=== PATIENT | female | born 1960 | race Caucasian/White ===

== ENCOUNTER 2022-07-01 10:27 | Inpatient (IN) | payer OTHER ==
[2022-07-01] MEDS ORDERED: SODIUM CHLORIDE 1,000 ML IV STA (10:53)
[2022-07-01 11:25] VITALS: BMI 22.3
[2022-07-01 11:58] LABS: HEMATOCRIT 31.9 % (32.4-45.2); HEMOGLOBIN 10.4 GM/dL (10.7-15.3); MCHC 32.6 g/dl (32.0-36.0); MEAN CELL VOLUME 91.9 fl (80-96); MEAN PLT VOLUME 9.7 fl (7.5-11.1); PLATELET COUNT 375 10^3/uL (134-434); RBC 3.47 M/mm3 (3.60-5.2); RDW 16.1 % (11.6-15.6); WHITE BLOOD COUNT 20.3 K/mm3 (4.0-10.0)
[2022-07-01 12:02] LABS: VENOUS BASE EXCESS 8.7 mmol/L (-2-2); VENOUS O2 SATURATION 49.1 % (70-80); VENOUS PCO2 66.9 mmHg (38-52); VENOUS PH 7.352 (7.310-7.410)
[2022-07-01 12:06] LABS: INR 1.1 (0.83-1.09); PROTHROMBIN TIME (PATIENT) 12.8 SEC (9.7-13.0)
[2022-07-01 12:09] LABS: ACTIVATED PTT 34.4 SECONDS (25.2-36.5)
[2022-07-01 12:19] LABS: ALBUMIN 2.1 g/dl (3.4-5.0); BLOOD UREA NITROGEN 34.3 mg/dL (7-18); CALCIUM 10.1 mg/dL (8.5-10.1)
[2022-07-01] MEDS ORDERED: VANCOMYCIN 1 GM in D5W (PRE-DOCKED) 1,000 MG/250 ML IVPB ONE (12:19)
[2022-07-01] MEDS ORDERED: PIPERACILLIN/TAZOB 3.375 GM 3.375 GM in DEXTROSE 5%-WATER - 50 ML IVPB ONE ×2 (12:19→20:54)
[2022-07-01 12:22] LABS: CREATININE 0.6 mg/dL (0.55-1.3)
[2022-07-01 12:24] LABS: BILIRUBIN,TOTAL 0.3 mg/dL (0.2-1); TOT PROT 6.7 g/dl (6.4-8.2)
[2022-07-01 12:29] LABS: LACTIC ACID 2.2 mmol/L (0.4-2.0)
[2022-07-01] MEDS ORDERED: CEFEPIME HCL/D5W 1 GM/50 ML BAG IVPB ONE (12:30)
[2022-07-01] MEDS ORDERED: CEFEPIME 1 GM/100 ML BAG IVPB ONE (12:31)
[2022-07-01 12:40] LABS: ANISOCYTOSIS 0; MACROCYTOSIS 0
[2022-07-01] MEDS ORDERED: VANCOMYCIN/WATER FOR INJ (PEG) 1,000 MG/200 ML BAG IVPB ONE (12:40)
[2022-07-01 12:47] LABS: EPI CELLS 8 /uL (0-25.1); HYALINE CASTS 10 /uL (0-3.1); URINE APPEARANCE CLOUDY; URINE BACTERIA 223 /uL (0-1359); URINE BILIRUBIN NEGATIVE (NEGATIVE); URINE COLOR YELLOW; URINE GLUCOSE (UA) NEGATIVE (NEGATIVE); URINE KETONE TRACE (NEGATIVE); URINE LEUK ESTERASE 1+ (NEGATIVE); URINE NITRITE NEGATIVE (NEGATIVE); URINE PROTEIN 3+ (NEGATIVE); URINE RBC 595 /uL (0-23.9); URINE WBC 329 /uL (0-25.8)
[2022-07-01] MEDS ORDERED: SODIUM ZIRCONIUM CYCLOSILICATE (LOKELMA) 5 GM PACKET PO ONE (12:48)
[2022-07-01] MEDS ORDERED: SODIUM ZIRCONIUM CYCLOSILICATE (LOKELMA) 5 GM PACKET ONE (12:59)
[2022-07-01 13:06] LABS: URINE CRYSTALS NEGATIVE /hpf
[2022-07-01] MEDS ORDERED: DEXTROSE 5%-0.45% SALINE 1,000 ML IV SCH (14:15)
[2022-07-01] MEDS ORDERED: CALCIUM GLUCONATE 10% - 1,000 MG/10 ML VIAL IVPB ONE (15:11)
[2022-07-01] MEDS ORDERED: SODIUM CHLORIDE 500 ML IV STA (15:11)
[2022-07-01] MEDS ORDERED: dilTIAZem HCL 50 MG/10 ML - 10 ML VIAL IVPUSH ONE (15:12)
[2022-07-01] MEDS ORDERED: METOPROLOL TARTRATE 5 MG/5 ML VIAL IVPUSH PRN (15:31)
[2022-07-01] MEDS ORDERED: INSULIN (NOVOLOG) ASPART 100 UNITS/ML 10ML VIAL ONE (17:20)
[2022-07-01] MEDS: INSULIN SLIDING SCALE (NOVOLOG) 1 VIAL SQ SCH (17:32)
[2022-07-01] MEDS ORDERED: PIPERACILLIN/TAZOB 3.375 GM 3.375 GM in DEXTROSE 5%-WATER - 50 ML IVPB SCH (18:00)
[2022-07-01] MEDS ORDERED: PIPERACILLIN/TAZOB 3.375 GM 3.375 GM/50 ML BAG IVPB ONE (21:21)
[2022-07-02] MEDS: QUEtiapine FUMARATE 100 MG TABLET (FP) PEG SCH ×2 (04:09→22:54)
[2022-07-02] MEDS: INSULIN SLIDING SCALE (NOVOLOG) 1 VIAL SQ SCH ×5 (04:13→22:58)
[2022-07-02 06:56] LABS: BASO % 0.2 % (0-2.0); EOS % 1.4 % (0-4.5); HEMATOCRIT 26.8 % (32.4-45.2); HEMOGLOBIN 8.9 GM/dL (10.7-15.3); LYMPH % 9.6 % (8-40); MCH 30.6 pg (25.7-33.7); MCHC 33.3 g/dl (32.0-36.0); MEAN PLT VOLUME 9.4 fl (7.5-11.1); MONO % 8.4 % (3.8-10.2); NEUT % 80.4 % (42.8-82.8); PLATELET COUNT 281 10^3/uL (134-434); RBC 2.91 M/mm3 (3.60-5.2); WHITE BLOOD COUNT 11.9 K/mm3 (4.0-10.0)
[2022-07-02 07:01] LABS: ALBUMIN 1.7 g/dl (3.4-5.0)
[2022-07-02 07:02] LABS: BLOOD UREA NITROGEN 21.8 mg/dL (7-18)
[2022-07-02 07:04] LABS: CREATININE 0.5 mg/dL (0.55-1.3)
[2022-07-02 07:06] LABS: BILIRUBIN,TOTAL 0.2 mg/dL (0.2-1); TOT PROT 5.7 g/dl (6.4-8.2)
[2022-07-02] MEDS ORDERED: PIPERACILLIN/TAZOB 3.375 GM 3.375 GM/50 ML BAG IVPB ONE ×2 (08:25→12:42)
[2022-07-02] MEDS: PIPERACILLIN/TAZOB 3.375 GM 3.375 GM in DEXTROSE 5%-WATER - 50 ML IVPB SCH ×3 (08:31→22:54)
[2022-07-02] MEDS ORDERED: HEPARIN NA (PORCINE) 5,000 UNITS/ML 1ML VIAL ONE (09:48)
[2022-07-02] MEDS ORDERED: SERTRALINE HCL 50 MG TABLET (FP) ONE (09:48)
[2022-07-02] MEDS: SERTRALINE HCL 50 MG TABLET (FP) PEG SCH (09:58)
[2022-07-02] MEDS: HEPARIN NA (PORCINE) 5,000 UNITS/ML 1ML VIAL SQ SCH ×3 (09:58→22:54)
[2022-07-02] MEDS ORDERED: VANCOMYCIN/WATER FOR INJ (PEG) 1,000 MG/200 ML BAG IVPB ONE (10:23)
[2022-07-02] MEDS: VANCOMYCIN/WATER FOR INJ (PEG) 1,000 MG/200 ML BAG IVPB SCH (10:36)
[2022-07-02] MEDS: LACTATED RINGERS SOLUTION 1,000 ML/1,000 ML INFUS.BAG IV SCH (12:51)
[2022-07-03] MEDS: VANCOMYCIN/WATER FOR INJ (PEG) 1,000 MG/200 ML BAG IVPB SCH ×3 (00:04→22:55)
[2022-07-03] MEDS: CEFEPIME 1 GM in DEXTROSE 5%-WATER 100 ML IVPB SCH ×3 (01:50→17:32)
[2022-07-03] MEDS ORDERED: PIPERACILLIN/TAZOB 3.375 GM 3.375 GM in DEXTROSE 5%-WATER - 50 ML IVPB SCH (02:00)
[2022-07-03] MEDS: INSULIN SLIDING SCALE (NOVOLOG) 1 VIAL SQ SCH ×5 (06:41→22:53)
[2022-07-03] MEDS: SERTRALINE HCL 50 MG TABLET (FP) PEG SCH (10:24)
[2022-07-03] MEDS: HEPARIN NA (PORCINE) 5,000 UNITS/ML 1ML VIAL SQ SCH ×2 (10:25→21:11)
[2022-07-03] MEDS: PANTOPRAZOLE SODIUM 40 MG VIAL IVPUSH SCH (10:25)
[2022-07-03] MEDS: LACTATED RINGERS SOLUTION 1,000 ML/1,000 ML INFUS.BAG IV SCH ×2 (10:29→13:08)
[2022-07-03] MEDS ORDERED: IRON SUCROSE INJECTION 200 MG in SODIUM CHLORIDE 90 ML IVPB ONE (11:00)
[2022-07-03] MEDS: AMINO ACIDS/PROTEIN HYDROLYS 30 ML LIQUID.PKT PO SCH (17:30)
[2022-07-03] MEDS: QUEtiapine FUMARATE 100 MG TABLET (FP) PEG SCH (21:12)
[2022-07-03] MEDS: INSULIN (LEVEMIR) 100 UNITS/ML UNITS SQ SCH (22:54)
[2022-07-04] MEDS: CEFEPIME 1 GM in DEXTROSE 5%-WATER 100 ML IVPB SCH ×3 (01:50→17:01)
[2022-07-04] MEDS: AMINO ACIDS/PROTEIN HYDROLYS 30 ML LIQUID.PKT PO SCH ×2 (08:56→17:01)
[2022-07-04] MEDS: HEPARIN NA (PORCINE) 5,000 UNITS/ML 1ML VIAL SQ SCH ×2 (09:07→21:25)
[2022-07-04] MEDS: SERTRALINE HCL 50 MG TABLET (FP) PEG SCH (09:07)
[2022-07-04] MEDS: ASCORBIC ACID 250 MG TABLET (FP) PO SCH (09:08)
[2022-07-04] MEDS: INSULIN (LEVEMIR) 100 UNITS/ML UNITS SQ SCH ×2 (09:08→21:25)
[2022-07-04] MEDS: PANTOPRAZOLE SODIUM 40 MG VIAL IVPUSH SCH (09:09)
[2022-07-04] MEDS: INSULIN SLIDING SCALE (NOVOLOG) 1 VIAL SQ SCH ×4 (09:50→21:26)
[2022-07-04 10:16] LABS: HEMOGLOBIN 9.6 GM/dL (10.7-15.3); MCH 30.5 pg (25.7-33.7); MCHC 33.1 g/dl (32.0-36.0); MEAN CELL VOLUME 92.4 fl (80-96); MEAN PLT VOLUME 10.2 fl (7.5-11.1); PLATELET COUNT 278 10^3/uL (134-434); RBC 3.13 M/mm3 (3.60-5.2); RDW 15.9 % (11.6-15.6)
[2022-07-04 10:41] LABS: BLOOD UREA NITROGEN 28.4 mg/dL (7-18)
[2022-07-04] MEDS: VANCOMYCIN/WATER FOR INJ (PEG) 1,000 MG/200 ML BAG IVPB SCH ×2 (10:41→22:20)
[2022-07-04 10:42] LABS: CALCIUM 8.9 mg/dL (8.5-10.1)
[2022-07-04 10:43] LABS: MAGNESIUM 1.6 mg/dL (1.8-2.4)
[2022-07-04 10:44] LABS: CREATININE 0.5 mg/dL (0.55-1.3)
[2022-07-04] MEDS: LACTATED RINGERS SOLUTION 1,000 ML/1,000 ML INFUS.BAG IV SCH ×2 (12:30→22:20)
[2022-07-04] MEDS: QUEtiapine FUMARATE 100 MG TABLET (FP) PEG SCH (21:25)
[2022-07-05] MEDS: CEFEPIME 1 GM in DEXTROSE 5%-WATER 100 ML IVPB SCH ×3 (02:07→17:42)
[2022-07-05] MEDS: INSULIN SLIDING SCALE (NOVOLOG) 1 VIAL SQ SCH ×4 (07:24→21:04)
[2022-07-05] MEDS: AMINO ACIDS/PROTEIN HYDROLYS 30 ML LIQUID.PKT PO SCH ×2 (10:19→17:42)
[2022-07-05] MEDS: HEPARIN NA (PORCINE) 5,000 UNITS/ML 1ML VIAL SQ SCH ×2 (10:19→21:03)
[2022-07-05] MEDS: INSULIN (LEVEMIR) 100 UNITS/ML UNITS SQ SCH ×2 (10:20→21:04)
[2022-07-05] MEDS: SERTRALINE HCL 50 MG TABLET (FP) PEG SCH (10:20)
[2022-07-05] MEDS: ASCORBIC ACID 250 MG TABLET (FP) PO SCH (10:20)
[2022-07-05] MEDS: PANTOPRAZOLE SODIUM 40 MG VIAL IVPUSH SCH (10:20)
[2022-07-05] MEDS: LACTATED RINGERS SOLUTION 1,000 ML/1,000 ML INFUS.BAG IV SCH (12:18)
[2022-07-05] MEDS: QUEtiapine FUMARATE 100 MG TABLET (FP) PEG SCH (21:03)
[2022-07-05] MEDS ORDERED: SODIUM CHLORIDE 250 ML IV STA ×2 (22:05→23:15)
[2022-07-06] MEDS: LACTATED RINGERS SOLUTION 1,000 ML/1,000 ML INFUS.BAG IV SCH ×2 (01:11→15:54)
[2022-07-06] MEDS: CEFEPIME 1 GM in DEXTROSE 5%-WATER 100 ML IVPB SCH ×3 (02:21→17:38)
[2022-07-06] MEDS: INSULIN SLIDING SCALE (NOVOLOG) 1 VIAL SQ SCH ×4 (06:47→21:14)
[2022-07-06] MEDS: SERTRALINE HCL 50 MG TABLET (FP) PEG SCH (09:54)
[2022-07-06] MEDS: ASCORBIC ACID 250 MG TABLET (FP) PO SCH (09:54)
[2022-07-06] MEDS: HEPARIN NA (PORCINE) 5,000 UNITS/ML 1ML VIAL SQ SCH ×2 (09:55→21:13)
[2022-07-06] MEDS: AMINO ACIDS/PROTEIN HYDROLYS 30 ML LIQUID.PKT PO SCH ×2 (09:55→17:38)
[2022-07-06] MEDS: INSULIN (LEVEMIR) 100 UNITS/ML UNITS SQ SCH ×2 (09:56→21:13)
[2022-07-06] MEDS: PANTOPRAZOLE SODIUM 40 MG VIAL IVPUSH SCH (09:57)
[2022-07-06 10:32] LABS: HEMATOCRIT 28.8 % (32.4-45.2); HEMOGLOBIN 9.3 GM/dL (10.7-15.3); MCHC 32.4 g/dl (32.0-36.0); MEAN CELL VOLUME 92.7 fl (80-96); MEAN PLT VOLUME 9.9 fl (7.5-11.1); PLATELET COUNT 298 10^3/uL (134-434); RDW 16.5 % (11.6-15.6); WHITE BLOOD COUNT 13.2 K/mm3 (4.0-10.0)
[2022-07-06 10:38] LABS: CALCIUM 9.3 mg/dL (8.5-10.1)
[2022-07-06 10:39] LABS: BLOOD UREA NITROGEN 32.2 mg/dL (7-18); MAGNESIUM 1.9 mg/dL (1.8-2.4)
[2022-07-06 10:42] LABS: CREATININE 0.3 mg/dL (0.55-1.3)
[2022-07-06] MEDS: QUEtiapine FUMARATE 100 MG TABLET (FP) PEG SCH (21:15)
[2022-07-07] MEDS: CEFEPIME 1 GM in DEXTROSE 5%-WATER 100 ML IVPB SCH ×2 (01:14→10:21)
[2022-07-07] MEDS: LACTATED RINGERS SOLUTION 1,000 ML/1,000 ML INFUS.BAG IV SCH ×2 (05:46→14:16)
[2022-07-07] MEDS: INSULIN SLIDING SCALE (NOVOLOG) 1 VIAL SQ SCH ×2 (06:28→11:24)
[2022-07-07] MEDS: HEPARIN NA (PORCINE) 5,000 UNITS/ML 1ML VIAL SQ SCH (10:20)
[2022-07-07] MEDS: ASCORBIC ACID 250 MG TABLET (FP) PO SCH (10:20)
[2022-07-07] MEDS: PANTOPRAZOLE SODIUM 40 MG VIAL IVPUSH SCH (10:20)
[2022-07-07] MEDS: SERTRALINE HCL 50 MG TABLET (FP) PEG SCH (10:21)
[2022-07-07] MEDS: AMINO ACIDS/PROTEIN HYDROLYS 30 ML LIQUID.PKT PO SCH (10:21)
[2022-07-07] MEDS: INSULIN (LEVEMIR) 100 UNITS/ML UNITS SQ SCH (10:21)
[2022-07-07] MEDS ORDERED: INSULIN SLIDING SCALE (NOVOLOG) 1 VIAL SQ ONE (11:25)
[2022-07-07] MEDS ORDERED: amLODIPine BESYLATE 5 MG TABLET (FP) GT ONE (12:30)
[2022-07-07] MEDS ORDERED: ALPRAZolam 0.25 MG TABLET PO ONE (14:15)
[2022-07-07 15:27] VITALS: RESP 18
[2022-07-07 16:33] VITALS: PULSE 90; TEMP 97.9
[2022-07-07 17:32] VITALS: BP 131/82
== END 2022-07-07 16:49 | DRG 870 ==
LOC: JER 10:27 → JERBED 12:20 → J5S 07-02 17:50
PROVIDERS: ADMIT Family Medicine; ATTEND Family Medicine
PROC: 5A1955Z Respiratory Ventilation, Greater than 96 Consecutive Hours (ICD-10-PCS; principal; 2022-07-01)
DX: A41.9 Sepsis, unspecified organism (principal); L89.154 Pressure ulcer of sacral region, stage 4; J18.9 Pneumonia, unspecified organism; J96.22 Acute and chronic respiratory failure with hypercapnia; G93.41 Metabolic encephalopathy; G12.21 Amyotrophic lateral sclerosis; R64 Cachexia; Z68.20 Body mass index [BMI] 20.0-20.9, adult; Z93.0 Tracheostomy status; E78.5 Hyperlipidemia, unspecified; E11.9 Type 2 diabetes mellitus without complications
CPT/HCPCS: 0241U-QW; 36415; 71045-TC-FY; 80048; 80053; 81003; 82728; 82803; 82962; 83036; 83540; 83550; 83605; 83735; 84443; 84484; 85025; 85027; 85610; 85730; 86850; 86900; 86901; 87040; 87070; 87077; 87086; 87186; 87205; 87899; 93005; 93010; 94002; 99285-25; C9803-CS; G0480; J1644; J1756; U0003; U0005

== ENCOUNTER 2022-07-15 22:55 | Inpatient (IN) | payer OTHER ==
[2022-07-15 23:07] VITALS: BMI 21.4
[2022-07-16 00:23] LABS: VENOUS BASE EXCESS 5.7 mmol/L (-2-2); VENOUS O2 SATURATION 97.6 % (70-80); VENOUS PCO2 50.5 mmHg (38-52); VENOUS PH 7.411 (7.310-7.410)
[2022-07-16 00:26] LABS: EPI CELLS >36 /uL (0-25.1); HYALINE CASTS 52 /uL (0-3.1); URINE APPEARANCE TURBID; URINE BACTERIA 1536 /uL (0-1359); URINE BILIRUBIN NEGATIVE (NEGATIVE); URINE COLOR YELLOW; URINE GLUCOSE (UA) 1+ (NEGATIVE); URINE KETONE NEGATIVE (NEGATIVE); URINE LEUK ESTERASE 3+ (NEGATIVE); URINE NITRITE POSITIVE (NEGATIVE); URINE PROTEIN 3+ (NEGATIVE); URINE WBC 21758 /uL (0-25.8)
[2022-07-16 00:38] LABS: HEMATOCRIT 29.6 % (32.4-45.2); HEMOGLOBIN 9.5 GM/dL (10.7-15.3); MCH 29.6 pg (25.7-33.7); MCHC 32.1 g/dl (32.0-36.0); MEAN CELL VOLUME 92.4 fl (80-96); MEAN PLT VOLUME 9.7 fl (7.5-11.1); PLATELET COUNT 513 10^3/uL (134-434); RBC 3.21 M/mm3 (3.60-5.2); RDW 17.1 % (11.6-15.6); WHITE BLOOD COUNT 21.1 K/mm3 (4.0-10.0)
[2022-07-16 00:42] LABS: POTASSIUM 5.6 mmol/L (3.5-5.1)
[2022-07-16 00:44] LABS: BLOOD UREA NITROGEN 39.9 mg/dL (7-18)
[2022-07-16 00:45] LABS: INR 1.08 (0.83-1.09); PROTHROMBIN TIME (PATIENT) 12.5 SEC (9.7-13.0)
[2022-07-16 00:47] LABS: CREATININE 0.6 mg/dL (0.55-1.3)
[2022-07-16 00:49] LABS: BILIRUBIN,TOTAL 0.3 mg/dL (0.2-1); TOT PROT 6.5 g/dl (6.4-8.2)
[2022-07-16 00:52] LABS: ALBUMIN 2.1 g/dl (3.4-5.0)
[2022-07-16 00:55] LABS: LACTIC ACID 2.2 mmol/L (0.4-2.0)
[2022-07-16] MEDS ORDERED: GENTAMICIN INJECTION 100 MG in SODIUM CHLORIDE 97.5 ML IVPB ONE (01:39)
[2022-07-16] MEDS ORDERED: LACTATED RINGERS SOLUTION 1000 ML INFUS.BAG IV ONE (02:12)
[2022-07-16] MEDS: LINEZOLID 600 MG PREMIX BAG 600 MG in PREMIX 300 IVPB ONE ×2 (02:58→03:24)
[2022-07-16 06:18] LABS: HEMATOCRIT 25.9 % (32.4-45.2); HEMOGLOBIN 8.4 GM/dL (10.7-15.3); MCH 30.2 pg (25.7-33.7); MCHC 32.6 g/dl (32.0-36.0); MEAN CELL VOLUME 92.6 fl (80-96); PLATELET COUNT 400 10^3/uL (134-434); RDW 16.7 % (11.6-15.6); WHITE BLOOD COUNT 14.9 K/mm3 (4.0-10.0)
[2022-07-16 06:50] LABS: POTASSIUM 4.3 mmol/L (3.5-5.1)
[2022-07-16 06:52] LABS: CALCIUM 9.9 mg/dL (8.5-10.1)
[2022-07-16 06:53] LABS: ALBUMIN 1.9 g/dl (3.4-5.0); BLOOD UREA NITROGEN 37.5 mg/dL (7-18); MAGNESIUM 1.8 mg/dL (1.8-2.4)
[2022-07-16 06:56] LABS: CREATININE 0.5 mg/dL (0.55-1.3); PHOSPHOROUS 3.1 mg/dL (2.5-4.9)
[2022-07-16 06:58] LABS: BILIRUBIN,TOTAL 0.2 mg/dL (0.2-1); TOT PROT 5.7 g/dl (6.4-8.2)
[2022-07-16 07:22] LABS: URINE RBC 912.8 /uL (0-23.9); YEAST NEGATIVE (NEGATIVE)
[2022-07-16] MEDS: INSULIN SLIDING SCALE (NOVOLOG) 1 VIAL SQ SCH ×4 (08:22→21:18)
[2022-07-16] MEDS: ENOXAPARIN NA (PORCINE) 40 MG/0.4 ML DISP.SYRIN SQ SCH (09:40)
[2022-07-16] MEDS ORDERED: GENTAMICIN INJECTION 100 MG in SODIUM CHLORIDE 97.5 ML IVPB SCH (10:00)
[2022-07-16] MEDS: FERROUS SO4 300 MG/5 ML ORAL SOLN UNIT DOSE CUPS GT SCH (11:36)
[2022-07-16] MEDS: SENNOSIDES 8.8 MG/5 ML BULK BOTTLE GT SCH (11:36)
[2022-07-16] MEDS: ASPIRIN 81 MG CHEWABLE TABLETS GT SCH (11:36)
[2022-07-16 12:06] LABS: EPI CELLS 5 /uL (0-25.1); HYALINE CASTS 2 /uL (0-3.1); PH,URINE 8.5 (5.0-8.0); URINE APPEARANCE CLOUDY; URINE BACTERIA 3643 /uL (0-1359); URINE BILIRUBIN NEGATIVE (NEGATIVE); URINE COLOR YELLOW; URINE GLUCOSE (UA) NEGATIVE (NEGATIVE); URINE KETONE NEGATIVE (NEGATIVE); URINE LEUK ESTERASE 3+ (NEGATIVE); URINE NITRITE POSITIVE (NEGATIVE); URINE PROTEIN 3+ (NEGATIVE); URINE RBC 178 /uL (0-23.9); URINE UROBILINOGEN 0.2 mg/dL (0.2-1.0); URINE WBC 1362 /uL (0-25.8)
[2022-07-16 12:10] LABS: YEAST NEGATIVE (NEGATIVE)
[2022-07-16] MEDS ORDERED: LINEZOLID 600 MG PREMIX BAG 600 MG/300 ML BAG IVPB SCH (13:30)
[2022-07-16] MEDS: INSULIN (LEVEMIR) 100 UNITS/ML UNITS SQ SCH (21:19)
[2022-07-16] MEDS: CLOTRIMAZOLE 1% CREAM TP SCH (21:35)
[2022-07-17] MEDS: buPROPion HCL 75 MG TABLET GT SCH ×3 (00:23→21:01)
[2022-07-17] MEDS: INSULIN (LEVEMIR) 100 UNITS/ML UNITS SQ SCH ×2 (06:11→21:02)
[2022-07-17] MEDS: INSULIN SLIDING SCALE (NOVOLOG) 1 VIAL SQ SCH ×4 (06:11→21:03)
[2022-07-17] MEDS: ENOXAPARIN NA (PORCINE) 40 MG/0.4 ML DISP.SYRIN SQ SCH (10:37)
[2022-07-17] MEDS: SENNOSIDES 8.8 MG/5 ML BULK BOTTLE GT SCH (10:37)
[2022-07-17] MEDS: FERROUS SO4 300 MG/5 ML ORAL SOLN UNIT DOSE CUPS GT SCH (10:37)
[2022-07-17] MEDS: SERTRALINE HCL 50 MG TABLET (FP) GT SCH (10:37)
[2022-07-17] MEDS: ASPIRIN 81 MG CHEWABLE TABLETS GT SCH (10:37)
[2022-07-17] MEDS: CLOTRIMAZOLE 1% CREAM TP SCH ×2 (10:38→21:05)
[2022-07-17 11:45] LABS: INR 1.16 (0.83-1.09); PROTHROMBIN TIME (PATIENT) 13.4 SEC (9.7-13.0)
[2022-07-17 11:46] LABS: BASO % 0.5 % (0-2.0); EOS % 0.5 % (0-4.5); HEMATOCRIT 26.7 % (32.4-45.2); HEMOGLOBIN 8.9 GM/dL (10.7-15.3); LYMPH % 4.3 % (8-40); MCH 30.2 pg (25.7-33.7); MCHC 33.2 g/dl (32.0-36.0); MEAN CELL VOLUME 91.1 fl (80-96); MEAN PLT VOLUME 10.2 fl (7.5-11.1); MONO % 5.3 % (3.8-10.2); NEUT % 89.4 % (42.8-82.8); PLATELET COUNT 410 10^3/uL (134-434); RBC 2.93 M/mm3 (3.60-5.2); RDW 16.2 % (11.6-15.6); WHITE BLOOD COUNT 18.7 K/mm3 (4.0-10.0)
[2022-07-17 11:47] LABS: ACTIVATED PTT 29.8 SECONDS (25.2-36.5)
[2022-07-17 11:56] LABS: POTASSIUM 4.5 mmol/L (3.5-5.1)
[2022-07-17 12:03] LABS: CREATININE 0.4 mg/dL (0.55-1.3)
[2022-07-17 12:05] LABS: BILIRUBIN,TOTAL 0.4 mg/dL (0.2-1)
[2022-07-17 12:10] LABS: TOT PROT 6.2 g/dl (6.4-8.2)
[2022-07-17 12:12] LABS: CALCIUM 10.3 mg/dL (8.5-10.1)
[2022-07-17 12:13] LABS: BLOOD UREA NITROGEN 23.2 mg/dL (7-18); MAGNESIUM 1.9 mg/dL (1.8-2.4)
[2022-07-17 12:15] LABS: PHOSPHOROUS 3.2 mg/dL (2.5-4.9)
[2022-07-18] MEDS: INSULIN (LEVEMIR) 100 UNITS/ML UNITS SQ SCH ×2 (06:30→22:06)
[2022-07-18] MEDS: INSULIN SLIDING SCALE (NOVOLOG) 1 VIAL SQ SCH ×4 (06:31→17:59)
[2022-07-18] MEDS: ENOXAPARIN NA (PORCINE) 40 MG/0.4 ML DISP.SYRIN SQ SCH (10:33)
[2022-07-18] MEDS: SERTRALINE HCL 50 MG TABLET (FP) GT SCH (10:34)
[2022-07-18] MEDS: ASCORBIC ACID 250 MG TABLET (FP) GT SCH (10:34)
[2022-07-18] MEDS: buPROPion HCL 75 MG TABLET GT SCH ×2 (10:34→22:07)
[2022-07-18] MEDS: ZINC SULFATE 220 MG CAPSULE (FP) GT SCH (10:34)
[2022-07-18] MEDS: ASPIRIN 81 MG CHEWABLE TABLETS GT SCH (10:34)
[2022-07-18] MEDS: FERROUS SO4 300 MG/5 ML ORAL SOLN UNIT DOSE CUPS GT SCH (10:34)
[2022-07-18] MEDS: SENNOSIDES 8.8 MG/5 ML BULK BOTTLE GT SCH (10:35)
[2022-07-18] MEDS: CLOTRIMAZOLE 1% CREAM TP SCH ×2 (10:35→22:08)
[2022-07-18] MEDS: MULTIVIT-MINERALS ORAL LIQUID GT SCH (10:35)
[2022-07-18 10:42] LABS: BASO % 0.2 % (0-2.0); EOS % 0.1 % (0-4.5); HEMATOCRIT 30.9 % (32.4-45.2); HEMOGLOBIN 10.1 GM/dL (10.7-15.3); LYMPH % 3.7 % (8-40); MCH 29.7 pg (25.7-33.7); MCHC 32.5 g/dl (32.0-36.0); MEAN CELL VOLUME 91.4 fl (80-96); MEAN PLT VOLUME 9.9 fl (7.5-11.1); MONO % 6.9 % (3.8-10.2); NEUT % 89.1 % (42.8-82.8); PLATELET COUNT 492 10^3/uL (134-434); RBC 3.38 M/mm3 (3.60-5.2); RDW 16.8 % (11.6-15.6); WHITE BLOOD COUNT 19.7 K/mm3 (4.0-10.0)
[2022-07-18 11:15] LABS: ALBUMIN 1.9 g/dl (3.4-5.0); CALCIUM 10.2 mg/dL (8.5-10.1)
[2022-07-18 11:19] LABS: CREATININE 0.7 mg/dL (0.55-1.3)
[2022-07-18 11:20] LABS: BILIRUBIN,TOTAL 0.2 mg/dL (0.2-1); TOT PROT 6.6 g/dl (6.4-8.2)
[2022-07-18] MEDS ORDERED: SODIUM CHLORIDE 500 ML IV STA (11:45)
[2022-07-18] MEDS: ATORVASTATIN CA 40 MG TABLET (FP) GT SCH (22:07)
[2022-07-19] MEDS: INSULIN SLIDING SCALE (NOVOLOG) 1 VIAL SQ SCH ×4 (00:17→17:28)
[2022-07-19] MEDS: INSULIN (LEVEMIR) 100 UNITS/ML UNITS SQ SCH ×2 (06:03→22:04)
[2022-07-19 10:02] LABS: BASO % 0.2 % (0-2.0); EOS % 0.2 % (0-4.5); HEMATOCRIT 27.5 % (32.4-45.2); LYMPH % 4.4 % (8-40); MCH 30.3 pg (25.7-33.7); MCHC 32.6 g/dl (32.0-36.0); MONO % 6.5 % (3.8-10.2); NEUT % 88.7 % (42.8-82.8); PLATELET COUNT 394 10^3/uL (134-434); RBC 2.96 M/mm3 (3.60-5.2); RDW 16.3 % (11.6-15.6); WHITE BLOOD COUNT 19.5 K/mm3 (4.0-10.0)
[2022-07-19] MEDS: ASCORBIC ACID 250 MG TABLET (FP) GT SCH (10:11)
[2022-07-19] MEDS: QUEtiapine FUMARATE 100 MG TABLET (FP) PO SCH (10:11)
[2022-07-19] MEDS: ASPIRIN 81 MG CHEWABLE TABLETS GT SCH (10:11)
[2022-07-19] MEDS: ENOXAPARIN NA (PORCINE) 40 MG/0.4 ML DISP.SYRIN SQ SCH (10:11)
[2022-07-19] MEDS: SERTRALINE HCL 50 MG TABLET (FP) GT SCH (10:12)
[2022-07-19] MEDS: ZINC SULFATE 220 MG CAPSULE (FP) GT SCH (10:12)
[2022-07-19] MEDS: MULTIVIT-MINERALS ORAL LIQUID GT SCH (10:12)
[2022-07-19] MEDS: buPROPion HCL 75 MG TABLET GT SCH ×2 (10:12→22:03)
[2022-07-19] MEDS: SENNOSIDES 8.8 MG/5 ML BULK BOTTLE GT SCH (10:12)
[2022-07-19] MEDS: FERROUS SO4 300 MG/5 ML ORAL SOLN UNIT DOSE CUPS GT SCH (10:12)
[2022-07-19] MEDS: CLOTRIMAZOLE 1% CREAM TP SCH ×2 (10:13→22:03)
[2022-07-19 10:23] LABS: POTASSIUM 4.8 mmol/L (3.5-5.1)
[2022-07-19 10:26] LABS: ALBUMIN 1.8 g/dl (3.4-5.0); MAGNESIUM 1.9 mg/dL (1.8-2.4)
[2022-07-19 10:28] LABS: CALCIUM 9.3 mg/dL (8.5-10.1)
[2022-07-19 10:30] LABS: BILIRUBIN,TOTAL 0.4 mg/dL (0.2-1); TOT PROT 6.2 g/dl (6.4-8.2)
[2022-07-19 10:31] LABS: CREATININE 0.7 mg/dL (0.55-1.3); PHOSPHOROUS 2.6 mg/dL (2.5-4.9)
[2022-07-19] MEDS: COLLAGENASE CLOSTRIDIUM HIST. 30 GRAMS TUBE TP SCH (13:21)
[2022-07-19 16:02] LABS: EPI CELLS 9 /uL (0-25.1); HYALINE CASTS 2 /uL (0-3.1); URINE APPEARANCE CLOUDY; URINE BACTERIA 358 /uL (0-1359); URINE BILIRUBIN NEGATIVE (NEGATIVE); URINE COLOR YELLOW; URINE GLUCOSE (UA) NEGATIVE (NEGATIVE); URINE KETONE NEGATIVE (NEGATIVE); URINE LEUK ESTERASE 2+ (NEGATIVE); URINE NITRITE NEGATIVE (NEGATIVE); URINE PROTEIN 3+ (NEGATIVE); URINE RBC 328 /uL (0-23.9); URINE UROBILINOGEN 0.2 mg/dL (0.2-1.0); URINE WBC 3074 /uL (0-25.8)
[2022-07-19] MEDS: ATORVASTATIN CA 40 MG TABLET (FP) GT SCH (22:03)
[2022-07-20] MEDS: INSULIN SLIDING SCALE (NOVOLOG) 1 VIAL SQ SCH ×3 (00:16→13:15)
[2022-07-20] MEDS: INSULIN (LEVEMIR) 100 UNITS/ML UNITS SQ SCH (06:06)
[2022-07-20 09:23] LABS: BASO % 0.2 % (0-2.0); EOS % 0.4 % (0-4.5); HEMATOCRIT 27.4 % (32.4-45.2); HEMOGLOBIN 9.1 GM/dL (10.7-15.3); LYMPH % 2.9 % (8-40); MCH 30.4 pg (25.7-33.7); MCHC 33.2 g/dl (32.0-36.0); MEAN CELL VOLUME 91.5 fl (80-96); MEAN PLT VOLUME 10.3 fl (7.5-11.1); MONO % 5.9 % (3.8-10.2); NEUT % 90.6 % (42.8-82.8); PLATELET COUNT 371 10^3/uL (134-434); RDW 15.7 % (11.6-15.6); WHITE BLOOD COUNT 18.9 K/mm3 (4.0-10.0)
[2022-07-20 09:42] LABS: POTASSIUM 4.6 mmol/L (3.5-5.1)
[2022-07-20 09:47] LABS: BLOOD UREA NITROGEN 49.8 mg/dL (7-18)
[2022-07-20 09:48] LABS: CALCIUM 9.7 mg/dL (8.5-10.1); MAGNESIUM 1.9 mg/dL (1.8-2.4)
[2022-07-20 09:52] LABS: CREATININE 0.7 mg/dL (0.55-1.3); PHOSPHOROUS 2.6 mg/dL (2.5-4.9)
[2022-07-20 09:53] LABS: BILIRUBIN,TOTAL 0.2 mg/dL (0.2-1); TOT PROT 6.4 g/dl (6.4-8.2)
[2022-07-20] MEDS ORDERED: SODIUM CHLORIDE 1,000 ML IV SCH (10:00)
[2022-07-20] MEDS: ASCORBIC ACID 250 MG TABLET (FP) GT SCH (10:27)
[2022-07-20] MEDS: FERROUS SO4 300 MG/5 ML ORAL SOLN UNIT DOSE CUPS GT SCH (10:27)
[2022-07-20] MEDS: MULTIVIT-MINERALS ORAL LIQUID GT SCH (10:27)
[2022-07-20] MEDS: QUEtiapine FUMARATE 100 MG TABLET (FP) PO SCH (10:27)
[2022-07-20] MEDS: ASPIRIN 81 MG CHEWABLE TABLETS GT SCH (10:27)
[2022-07-20] MEDS: ZINC SULFATE 220 MG CAPSULE (FP) GT SCH (10:28)
[2022-07-20] MEDS: ENOXAPARIN NA (PORCINE) 40 MG/0.4 ML DISP.SYRIN SQ SCH (10:29)
[2022-07-20] MEDS: SERTRALINE HCL 50 MG TABLET (FP) GT SCH (10:29)
[2022-07-20] MEDS: SENNOSIDES 8.8 MG/5 ML BULK BOTTLE GT SCH (10:33)
[2022-07-20] MEDS: buPROPion HCL 75 MG TABLET GT SCH (10:35)
[2022-07-20] MEDS: COLLAGENASE CLOSTRIDIUM HIST. 30 GRAMS TUBE TP SCH (10:49)
[2022-07-20] MEDS: CLOTRIMAZOLE 1% CREAM TP SCH (10:50)
[2022-07-20 14:44] VITALS: PULSE 111; RESP 19
[2022-07-20 15:29] VITALS: BP 112/68; TEMP 98.5
== END 2022-07-20 15:51 | DRG 870 ==
LOC: JER 22:55 → JERBED 07-16 02:26 → J5S 07-16 06:48
PROVIDERS: ADMIT Internal Medicine
PROC: 5A1955Z Respiratory Ventilation, Greater than 96 Consecutive Hours (ICD-10-PCS; principal; 2022-07-16)
DX: A41.9 Sepsis, unspecified organism (principal); J96.21 Acute and chronic respiratory failure with hypoxia; L89.154 Pressure ulcer of sacral region, stage 4; N39.0 Urinary tract infection, site not specified; G12.21 Amyotrophic lateral sclerosis; E87.20 Acidosis, unspecified; G81.94 Hemiplegia, unspecified affecting left nondominant side; I10 Essential (primary) hypertension; Z86.73 Personal history of transient ischemic attack (TIA), and cerebral infarction without residual deficits; E11.9 Type 2 diabetes mellitus without complications; Z79.4 Long term (current) use of insulin; F31.9 Bipolar disorder, unspecified; E78.5 Hyperlipidemia, unspecified; D50.9 Iron deficiency anemia, unspecified; Z93.0 Tracheostomy status
CPT/HCPCS: 0241U-QW; 36415; 71045-TC-FY; 80053; 81003; 82308; 82550; 82803; 82962; 83605; 83735; 84100; 84484; 85025; 85027; 85610; 85651; 85730; 86140; 86850; 86900; 86901; 87040; 87070; 87086; 87184; 87186; 87205; 87899; 93005; 93010; 94002; 99285-25; C9803-CS; U0003; U0005

== ENCOUNTER 2022-08-04 21:18 | Inpatient (IN) | payer OTHER ==
[2022-08-04] MEDS ORDERED: SODIUM CHLORIDE 1,000 ML IV STA (21:31)
[2022-08-04] MEDS ORDERED: ACETAMINOPHEN 1000 MG/100 ML BAG IVPB ONE (21:31)
[2022-08-04] MEDS ORDERED: MEROPENEM 1 GM in DEXTROSE 5%-WATER 100 ML IVPB ONE (21:32)
[2022-08-04] MEDS ORDERED: VANCOMYCIN 1 GM in D5W (PRE-DOCKED) 1,000 MG/250 ML (RESTRICTED TO ID ONLY IVPB ONE (21:32)
[2022-08-04] MEDS ORDERED: ACETAMINOPHEN INJECTION 100 ML IVPB ONE (22:03)
[2022-08-04] MEDS ORDERED: VANCOMYCIN/WATER FOR INJ (PEG) 1,000 MG/200 ML BAG IVPB ONE ×2 (22:03→22:38)
[2022-08-04] MEDS ORDERED: MEROPENEM 1 GM VIAL (RESTRICTED TO ID) IVPB ONE (22:03)
[2022-08-04 22:23] LABS: BASO % 0.4 % (0-2.0); EOS % 0.2 % (0-4.5); HEMATOCRIT 18.3 % (32.4-45.2); LYMPH % 5.6 % (8-40); MCH 29.4 pg (25.7-33.7); MCHC 29.7 g/dl (32.0-36.0); MEAN CELL VOLUME 99.1 fl (80-96); MEAN PLT VOLUME 11.4 fl (7.5-11.1); MONO % 4.6 % (3.8-10.2); NEUT % 89.2 % (42.8-82.8); PLATELET COUNT 249 10^3/uL (134-434); RBC 1.85 M/mm3 (3.60-5.2); RDW 18.3 % (11.6-15.6); WHITE BLOOD COUNT 12.3 K/mm3 (4.0-10.0)
[2022-08-04 22:29] LABS: HEMOGLOBIN 5.4 GM/dL (10.7-15.3)
[2022-08-04 22:32] LABS: INR 1.09 (0.83-1.09); PROTHROMBIN TIME (PATIENT) 12.6 SEC (9.7-13.0)
[2022-08-04 22:41] LABS: POTASSIUM 4.8 mmol/L (3.5-5.1)
[2022-08-04 22:43] LABS: BLOOD UREA NITROGEN 102.6 mg/dL (7-18); CALCIUM 7.9 mg/dL (8.5-10.1)
[2022-08-04 22:44] LABS: ACTIVATED PTT 18.3 SECONDS (25.2-36.5)
[2022-08-04 22:46] LABS: CREATININE 0.7 mg/dL (0.55-1.3)
[2022-08-04 22:48] LABS: BILIRUBIN,TOTAL 0.2 mg/dL (0.2-1); TOT PROT 5.4 g/dl (6.4-8.2)
[2022-08-04 22:49] LABS: LACTIC ACID 2.1 mmol/L (0.4-2.0)
[2022-08-04 23:15] LABS: EPI CELLS >36 /uL (0-25.1); HYALINE CASTS 2 /uL (0-3.1); PH,URINE 5.5 (5.0-8.0); URINE APPEARANCE CLEAR; URINE BACTERIA 22 /uL (0-1359); URINE BILIRUBIN NEGATIVE (NEGATIVE); URINE COLOR YELLOW; URINE GLUCOSE (UA) NEGATIVE (NEGATIVE); URINE KETONE NEGATIVE (NEGATIVE); URINE LEUK ESTERASE 1+ (NEGATIVE); URINE NITRITE NEGATIVE (NEGATIVE); URINE PROTEIN 2+ (NEGATIVE); URINE UROBILINOGEN 0.2 mg/dL (0.2-1.0); URINE WBC 162 /uL (0-25.8)
[2022-08-04 23:38] LABS: VENOUS BASE EXCESS 3.5 mmol/L (-2-2); VENOUS O2 SATURATION 36.8 % (70-80); VENOUS PH 7.247 (7.310-7.410)
[2022-08-04 23:40] LABS: VENOUS PCO2 72.9 mmHg (38-52)
[2022-08-04 23:54] LABS: URINE RBC 97.7 /uL (0-23.9)
[2022-08-04 23:55] LABS: URINE CRYSTALS CA OXALATE /hpf
[2022-08-05] MEDS ORDERED: ACETAMINOPHEN 325 MG TABLET (FP) PO PRN (02:52)
[2022-08-05] MEDS ORDERED: VANCOMYCIN 750 MG PREMIX BAG (RESTRICTED TO ID ONLY) SCH (03:30)
[2022-08-05] MEDS ORDERED: DEXTROSE 50%-WATER 25 GM/50 ML DISP.SYRIN ONE (04:37)
[2022-08-05] MEDS ORDERED: DEXTROSE 50%-WATER - 25 GM/50 ML VIAL IVPUSH ONE (04:38)
[2022-08-05] MEDS ORDERED: DEXTROSE 50%-WATER 25 GM/50 ML DISP.SYRIN IVPUSH ONE (04:38)
[2022-08-05] MEDS ORDERED: VANCOMYCIN 1,000 MG in DEXTROSE 5%-WATER - 250 ML IVPB SCH (04:45)
[2022-08-05] MEDS ORDERED: LACTATED RINGERS SOLUTION 1000 ML INFUS.BAG IV ONE (04:45)
[2022-08-05 06:21] LABS: ARTERIAL BLD GAS O2 SATURATION 97.9 % (95-98); ARTERIAL BLOOD GAS BASE EXCESS 3.5 mmol/L (-2-2); ARTERIAL BLOOD GAS PO2 110.8 mmHg (80-100); ARTERIAL BLOOD GAS pH 7.368 (7.350-7.450)
[2022-08-05 06:25] LABS: ALLENS TEST POSITIVE
[2022-08-05 06:26] LABS: VENT MODE A/C; VENT RATE 14
[2022-08-05 07:11] LABS: BASO % 0.1 % (0-2.0); EOS % 0.8 % (0-4.5); LYMPH % 6.3 % (8-40); MCH 30.3 pg (25.7-33.7); MCHC 33.3 g/dl (32.0-36.0); MEAN PLT VOLUME 10.7 fl (7.5-11.1); MONO % 4.1 % (3.8-10.2); NEUT % 88.7 % (42.8-82.8); PLATELET COUNT 244 10^3/uL (134-434); RBC 2.64 M/mm3 (3.60-5.2); RDW 17.8 % (11.6-15.6); WHITE BLOOD COUNT 12.6 K/mm3 (4.0-10.0)
[2022-08-05 07:34] LABS: POTASSIUM 4.1 mmol/L (3.5-5.1)
[2022-08-05 07:39] LABS: BLOOD UREA NITROGEN 99.7 mg/dL (7-18); MAGNESIUM 2.4 mg/dL (1.8-2.4)
[2022-08-05 07:42] LABS: CREATININE 0.6 mg/dL (0.55-1.3)
[2022-08-05 07:43] LABS: BILIRUBIN,TOTAL 0.2 mg/dL (0.2-1); TOT PROT 5.2 g/dl (6.4-8.2)
[2022-08-05] MEDS: SERTRALINE HCL 50 MG TABLET (FP) GT SCH (09:58)
[2022-08-05] MEDS: ENOXAPARIN NA (PORCINE) 40 MG/0.4 ML DISP.SYRIN SQ SCH (09:58)
[2022-08-05] MEDS: ASPIRIN 81 MG CHEWABLE TABLETS GT SCH (09:58)
[2022-08-05] MEDS: FERROUS SO4 325 MG TABLET (FP) PO SCH (09:58)
[2022-08-05] MEDS: MEROPENEM 1 GM in DEXTROSE 5%-WATER 100 ML IVPB SCH ×2 (09:58→18:09)
[2022-08-05] MEDS: VANCOMYCIN 1 GM/200 ML PREMIX BAG (RESTRICTED TO ID ONLY) IVPB SCH ×2 (09:59→23:42)
[2022-08-05] MEDS ORDERED: MEROPENEM 1 GM in DEXTROSE 5%-WATER 100 ML IVPB SCH (10:00)
[2022-08-05] MEDS: POLYETHYLENE GLYCOL (HEALTHYLAX) 3350 17 GM PACKET GT SCH ×2 (10:52→21:27)
[2022-08-05] MEDS: ASCORBIC ACID 250 MG TABLET (FP) GT SCH (10:52)
[2022-08-05] MEDS: MULTIVIT-MINERALS ORAL LIQUID GT SCH (10:52)
[2022-08-05] MEDS: FAMOTIDINE 40 MG/5 ML ORAL SUSPENSION GT SCH ×2 (10:52→21:27)
[2022-08-05] MEDS: QUEtiapine FUMARATE 100 MG TABLET (FP) GT SCH (10:52)
[2022-08-05] MEDS: buPROPion HCL 75 MG TABLET GT SCH ×2 (10:53→21:26)
[2022-08-05] MEDS: MUPIROCIN 2% TOPICAL OINTMENT FOR DECOLONIZATION NS SCH ×2 (10:53→21:27)
[2022-08-05] MEDS: AMINO ACIDS/PROTEIN HYDROLYS 30 ML LIQUID.PKT GT SCH ×2 (12:46→18:09)
[2022-08-05] MEDS: ACETAMINOPHEN 650 MG/20.3 ML ORAL SOLUTION (CUPS) GT PRN (12:46)
[2022-08-05] MEDS: ATORVASTATIN CA 40 MG TABLET (FP) GT SCH (21:27)
[2022-08-05] MEDS: CHLORHEXIDINE GLUCONATE 4% CLEANSER FOR DECOLONIZATION TP SCH (21:27)
[2022-08-06] MEDS: MEROPENEM 1 GM in DEXTROSE 5%-WATER 100 ML IVPB SCH ×2 (02:44→22:51)
[2022-08-06] MEDS ORDERED: MEROPENEM 1 GM in DEXTROSE 5%-WATER 100 ML IVPB SCH (10:00)
[2022-08-06] MEDS: AMINO ACIDS/PROTEIN HYDROLYS 30 ML LIQUID.PKT GT SCH ×3 (10:07→16:53)
[2022-08-06] MEDS: ASPIRIN 81 MG CHEWABLE TABLETS GT SCH (10:07)
[2022-08-06] MEDS: SERTRALINE HCL 50 MG TABLET (FP) GT SCH (10:07)
[2022-08-06] MEDS: POLYETHYLENE GLYCOL (HEALTHYLAX) 3350 17 GM PACKET GT SCH ×2 (10:07→21:07)
[2022-08-06] MEDS: ENOXAPARIN NA (PORCINE) 40 MG/0.4 ML DISP.SYRIN SQ SCH (10:07)
[2022-08-06] MEDS: ASCORBIC ACID 250 MG TABLET (FP) GT SCH (10:07)
[2022-08-06] MEDS: QUEtiapine FUMARATE 100 MG TABLET (FP) GT SCH (10:08)
[2022-08-06] MEDS: FERROUS SO4 325 MG TABLET (FP) PO SCH (10:08)
[2022-08-06] MEDS: buPROPion HCL 75 MG TABLET GT SCH ×2 (10:08→20:25)
[2022-08-06] MEDS: MULTIVIT-MINERALS ORAL LIQUID GT SCH (10:09)
[2022-08-06] MEDS ORDERED: INSULIN (NOVOLOG) ASPART 100 UNITS/ML 10ML VIAL ONE (10:14)
[2022-08-06] MEDS: MUPIROCIN 2% TOPICAL OINTMENT FOR DECOLONIZATION NS SCH ×2 (10:30→21:09)
[2022-08-06] MEDS ORDERED: VANCOMYCIN 1 GM/200 ML PREMIX BAG (RESTRICTED TO ID ONLY) IVPB SCH (11:00)
[2022-08-06] MEDS: FAMOTIDINE 40 MG/5 ML ORAL SUSPENSION GT SCH ×2 (11:48→21:08)
[2022-08-06 12:23] LABS: HEMATOCRIT 26.1 % (32.4-45.2); HEMOGLOBIN 8.2 GM/dL (10.7-15.3); MCH 29.7 pg (25.7-33.7); MCHC 31.4 g/dl (32.0-36.0); MEAN CELL VOLUME 94.5 fl (80-96); MEAN PLT VOLUME 10.2 fl (7.5-11.1); PLATELET COUNT 287 10^3/uL (134-434); RBC 2.76 M/mm3 (3.60-5.2); RDW 18.9 % (11.6-15.6)
[2022-08-06 12:49] LABS: POTASSIUM 4.2 mmol/L (3.5-5.1)
[2022-08-06 12:50] LABS: CALCIUM 7.8 mg/dL (8.5-10.1)
[2022-08-06 12:51] LABS: BLOOD UREA NITROGEN 89.2 mg/dL (7-18); MAGNESIUM 2.4 mg/dL (1.8-2.4)
[2022-08-06 12:54] LABS: CREATININE 0.7 mg/dL (0.55-1.3); PHOSPHOROUS 4.1 mg/dL (2.5-4.9)
[2022-08-06] MEDS: COLLAGENASE CLOSTRIDIUM HIST. 30 GRAMS TUBE TP SCH (15:18)
[2022-08-06] MEDS: INSULIN SLIDING SCALE (NOVOLOG) 1 VIAL SQ SCH ×2 (16:19→21:32)
[2022-08-06] MEDS: CHLORHEXIDINE GLUCONATE 4% CLEANSER FOR DECOLONIZATION TP SCH (21:08)
[2022-08-06] MEDS: ATORVASTATIN CA 40 MG TABLET (FP) GT SCH (21:08)
[2022-08-06] MEDS: ACETAMINOPHEN 650 MG/20.3 ML ORAL SOLUTION (CUPS) GT PRN (22:37)
[2022-08-06] MEDS: VANCOMYCIN 1 GM/200 ML PREMIX BAG (RESTRICTED TO ID ONLY) IVPB SCH (22:53)
[2022-08-07] MEDS: INSULIN SLIDING SCALE (NOVOLOG) 1 VIAL SQ SCH ×4 (06:14→21:36)
[2022-08-07] MEDS: MEROPENEM 1 GM in DEXTROSE 5%-WATER 100 ML IVPB SCH ×3 (06:17→18:05)
[2022-08-07 07:55] LABS: HEMOGLOBIN 8.6 GM/dL (10.7-15.3); MCH 29.9 pg (25.7-33.7); MCHC 31.8 g/dl (32.0-36.0); MEAN CELL VOLUME 94.2 fl (80-96); MEAN PLT VOLUME 10.7 fl (7.5-11.1); PLATELET COUNT 302 10^3/uL (134-434); RBC 2.86 M/mm3 (3.60-5.2); RDW 18.1 % (11.6-15.6); WHITE BLOOD COUNT 14.4 K/mm3 (4.0-10.0)
[2022-08-07 08:04] LABS: CHLORIDE 121 mmol/L (98-107); POTASSIUM 4.2 mmol/L (3.5-5.1); SODIUM 157 mmol/L (136-145)
[2022-08-07 08:09] LABS: ANION GAP 4 MMOL/L (8-16); CO2 32 mmol/L (21-32); GLUCOSE,RANDOM 271 mg/dL (74-106)
[2022-08-07 08:11] LABS: CALCIUM 7.9 mg/dL (8.5-10.1); MAGNESIUM 2.8 mg/dL (1.8-2.4)
[2022-08-07 08:12] LABS: CREATININE 0.8 mg/dL (0.55-1.3); PHOSPHOROUS 4.8 mg/dL (2.5-4.9)
[2022-08-07 08:26] LABS: BLOOD UREA NITROGEN 107.5 mg/dL (7-18)
[2022-08-07] MEDS ORDERED: LACTATED RINGERS SOLUTION 1,000 ML/1,000 ML INFUS.BAG IV SCH (09:15)
[2022-08-07] MEDS: SERTRALINE HCL 50 MG TABLET (FP) GT SCH (09:20)
[2022-08-07] MEDS: POLYETHYLENE GLYCOL (HEALTHYLAX) 3350 17 GM PACKET GT SCH ×2 (09:21→21:12)
[2022-08-07] MEDS: COLLAGENASE CLOSTRIDIUM HIST. 30 GRAMS TUBE TP SCH (09:22)
[2022-08-07] MEDS: MULTIVIT-MINERALS ORAL LIQUID GT SCH (09:24)
[2022-08-07] MEDS: buPROPion HCL 75 MG TABLET GT SCH ×2 (09:24→20:49)
[2022-08-07] MEDS: FAMOTIDINE 40 MG/5 ML ORAL SUSPENSION GT SCH ×2 (09:24→21:12)
[2022-08-07] MEDS: AMINO ACIDS/PROTEIN HYDROLYS 30 ML LIQUID.PKT GT SCH ×3 (09:25→18:04)
[2022-08-07] MEDS: ASCORBIC ACID 250 MG TABLET (FP) GT SCH (09:30)
[2022-08-07] MEDS: MUPIROCIN 2% TOPICAL OINTMENT FOR DECOLONIZATION NS SCH ×2 (09:30→21:11)
[2022-08-07] MEDS: ASPIRIN 81 MG CHEWABLE TABLETS GT SCH (09:30)
[2022-08-07] MEDS: QUEtiapine FUMARATE 100 MG TABLET (FP) GT SCH (09:30)
[2022-08-07] MEDS: ENOXAPARIN NA (PORCINE) 40 MG/0.4 ML DISP.SYRIN SQ SCH (09:32)
[2022-08-07] MEDS: FERROUS SO4 325 MG TABLET (FP) PO SCH (09:38)
[2022-08-07 09:46] LABS: ERYTHROCYTE SEDIMENTATION RATE 117 mm/hr (0-30)
[2022-08-07] MEDS ORDERED: LACTATED RINGERS SOLUTION 1,000 ML/1,000 ML INFUS.BAG IV STA (11:20)
[2022-08-07] MEDS: VANCOMYCIN 1 GM/200 ML PREMIX BAG (RESTRICTED TO ID ONLY) IVPB SCH (11:35)
[2022-08-07] MEDS ORDERED: INSULIN (NOVOLOG) ASPART 100 UNITS/ML 10ML VIAL ONE ×2 (12:21→15:30)
[2022-08-07] MEDS: MIDODRINE HCL 5 MG TABLET PO SCH ×2 (12:41→14:05)
[2022-08-07] MEDS: SODIUM CHLORIDE 0.45% 1,000 ML IV SCH (12:47)
[2022-08-07] MEDS ORDERED: SODIUM CHLORIDE 0.45% 1,000 ML IV SCH ×2 (15:15→18:15)
[2022-08-07] MEDS ORDERED: MIDODRINE HCL 5 MG TABLET GT SCH (15:15)
[2022-08-07] MEDS: CHLORHEXIDINE GLUCONATE 4% CLEANSER FOR DECOLONIZATION TP SCH (21:12)
[2022-08-07] MEDS: INSULIN (LEVEMIR) 100 UNITS/ML UNITS SQ SCH (21:12)
[2022-08-07] MEDS: ATORVASTATIN CA 40 MG TABLET (FP) GT SCH (21:12)
[2022-08-07] MEDS: ACETAMINOPHEN 650 MG/20.3 ML ORAL SOLUTION (CUPS) GT PRN (21:13)
[2022-08-07] MEDS ORDERED: FAMOTIDINE 20 MG/2.5 ML ORAL LIQUID GT SCH (22:59)
[2022-08-07] MEDS ORDERED: ACETAMINOPHEN 650 MG/20.3 ML ORAL SOLUTION (CUPS) PO ONE (23:51)
[2022-08-07] MEDS ORDERED: SODIUM CHLORIDE 1,000 ML IV STA (23:52)
[2022-08-08] MEDS: MEROPENEM 1 GM in DEXTROSE 5%-WATER 100 ML IVPB SCH ×3 (01:27→17:23)
[2022-08-08] MEDS: INSULIN SLIDING SCALE (NOVOLOG) 1 VIAL SQ SCH ×4 (04:13→21:14)
[2022-08-08 08:41] LABS: BASO % 0.2 % (0-2.0); EOS % 0.1 % (0-4.5); HEMATOCRIT 15.1 % (32.4-45.2); LYMPH % 7.6 % (8-40); MCH 31.3 pg (25.7-33.7); MCHC 32.4 g/dl (32.0-36.0); MEAN CELL VOLUME 96.5 fl (80-96); MEAN PLT VOLUME 10.8 fl (7.5-11.1); MONO % 2.8 % (3.8-10.2); NEUT % 89.3 % (42.8-82.8); PLATELET COUNT 253 10^3/uL (134-434); RBC 1.57 M/mm3 (3.60-5.2); RDW 17.8 % (11.6-15.6); WHITE BLOOD COUNT 10.5 K/mm3 (4.0-10.0)
[2022-08-08 08:48] LABS: HEMOGLOBIN 4.9 GM/dL (10.7-15.3)
[2022-08-08] MEDS: buPROPion HCL 75 MG TABLET GT SCH ×2 (08:59→21:06)
[2022-08-08] MEDS: AMINO ACIDS/PROTEIN HYDROLYS 30 ML LIQUID.PKT GT SCH ×3 (08:59→17:22)
[2022-08-08 09:00] LABS: CHLORIDE 116 mmol/L (98-107); POTASSIUM 4.5 mmol/L (3.5-5.1); SODIUM 150 mmol/L (136-145)
[2022-08-08] MEDS: ASPIRIN 81 MG CHEWABLE TABLETS GT SCH (09:00)
[2022-08-08] MEDS: MUPIROCIN 2% TOPICAL OINTMENT FOR DECOLONIZATION NS SCH ×2 (09:00→21:07)
[2022-08-08] MEDS: POLYETHYLENE GLYCOL (HEALTHYLAX) 3350 17 GM PACKET GT SCH ×2 (09:01→21:06)
[2022-08-08] MEDS: MULTIVIT-MINERALS ORAL LIQUID GT SCH (09:01)
[2022-08-08] MEDS: ENOXAPARIN NA (PORCINE) 40 MG/0.4 ML DISP.SYRIN SQ SCH (09:01)
[2022-08-08] MEDS: FERROUS SO4 300 MG/5 ML ORAL SOLN UNIT DOSE CUPS GT SCH (09:01)
[2022-08-08] MEDS: SERTRALINE HCL 50 MG TABLET (FP) GT SCH (09:02)
[2022-08-08] MEDS: QUEtiapine FUMARATE 100 MG TABLET (FP) GT SCH (09:02)
[2022-08-08] MEDS: ASCORBIC ACID 250 MG TABLET (FP) GT SCH (09:02)
[2022-08-08] MEDS: MIDODRINE HCL 5 MG TABLET GT SCH ×4 (09:02→19:40)
[2022-08-08 09:03] LABS: ANION GAP 4 MMOL/L (8-16); CALCIUM 7.6 mg/dL (8.5-10.1); CO2 30 mmol/L (21-32); GLUCOSE,RANDOM 251 mg/dL (74-106)
[2022-08-08] MEDS: FAMOTIDINE 20 MG/2.5 ML ORAL LIQUID GT SCH ×2 (09:03→21:07)
[2022-08-08] MEDS: COLLAGENASE CLOSTRIDIUM HIST. 30 GRAMS TUBE TP SCH (09:03)
[2022-08-08] MEDS: ACETAMINOPHEN 650 MG/20.3 ML ORAL SOLUTION (CUPS) GT PRN (09:04)
[2022-08-08 09:06] LABS: PHOSPHOROUS 4.9 mg/dL (2.5-4.9); SGOT/AST 60 U/L (15-37); SGPT/ALT 67 U/L (13-61)
[2022-08-08 09:07] LABS: CREATININE 0.8 mg/dL (0.55-1.3)
[2022-08-08 09:08] LABS: BILIRUBIN,TOTAL 0.4 mg/dL (0.2-1); TOT PROT 4.7 g/dl (6.4-8.2)
[2022-08-08 09:09] LABS: ALK PHOS 176 U/L (45-117)
[2022-08-08 09:23] LABS: ALBUMIN 0.8 g/dl (3.4-5.0); BLOOD UREA NITROGEN 115.2 mg/dL (7-18)
[2022-08-08 10:24] LABS: BASO % 0.2 % (0-2.0); EOS % 0.1 % (0-4.5); HEMATOCRIT 23.8 % (32.4-45.2); HEMOGLOBIN 7.7 GM/dL (10.7-15.3); LYMPH % 7.6 % (8-40); MCH 30.7 pg (25.7-33.7); MCHC 32.2 g/dl (32.0-36.0); MEAN CELL VOLUME 95.6 fl (80-96); MEAN PLT VOLUME 11.1 fl (7.5-11.1); MONO % 2.4 % (3.8-10.2); NEUT % 89.7 % (42.8-82.8); PLATELET COUNT 211 10^3/uL (134-434); RBC 2.49 M/mm3 (3.60-5.2)
[2022-08-08 10:31] VITALS: BMI 20.9
[2022-08-08 10:53] LABS: ANISOCYTOSIS 1+; MACROCYTOSIS 0
[2022-08-08 11:07] LABS: CHLORIDE 113 mmol/L (98-107); POTASSIUM 4.6 mmol/L (3.5-5.1); SODIUM 148 mmol/L (136-145)
[2022-08-08 11:09] LABS: CALCIUM 7.9 mg/dL (8.5-10.1)
[2022-08-08 11:10] LABS: ALBUMIN 0.8 g/dl (3.4-5.0); ANION GAP 6 MMOL/L (8-16); CO2 29 mmol/L (21-32); GLUCOSE,RANDOM 294 mg/dL (74-106)
[2022-08-08 11:13] LABS: CREATININE 0.8 mg/dL (0.55-1.3); SGOT/AST 68 U/L (15-37); SGPT/ALT 67 U/L (13-61)
[2022-08-08 11:15] LABS: BILIRUBIN,TOTAL 0.2 mg/dL (0.2-1); TOT PROT 4.8 g/dl (6.4-8.2)
[2022-08-08 11:16] LABS: ALK PHOS 180 U/L (45-117)
[2022-08-08] MEDS: SODIUM CHLORIDE 0.45% 1,000 ML IV SCH (11:27)
[2022-08-08 11:29] LABS: BLOOD UREA NITROGEN 107.7 mg/dL (7-18)
[2022-08-08] MEDS ORDERED: ZINC OXIDE 20% TOPICAL OINTMENT 30 GM TUBE TP ONE (18:32)
[2022-08-08] MEDS: CHLORHEXIDINE GLUCONATE 4% CLEANSER FOR DECOLONIZATION TP SCH (21:07)
[2022-08-08] MEDS: ATORVASTATIN CA 40 MG TABLET (FP) GT SCH (21:07)
[2022-08-08] MEDS: INSULIN (LEVEMIR) 100 UNITS/ML UNITS SQ SCH (21:10)
[2022-08-09] MEDS: MEROPENEM 1 GM in DEXTROSE 5%-WATER 100 ML IVPB SCH ×3 (01:25→17:01)
[2022-08-09] MEDS: SODIUM CHLORIDE 0.45% 1,000 ML IV SCH ×3 (01:28→22:11)
[2022-08-09] MEDS: MIDODRINE HCL 5 MG TABLET GT SCH ×3 (02:39→18:33)
[2022-08-09] MEDS: INSULIN SLIDING SCALE (NOVOLOG) 1 VIAL SQ SCH ×4 (02:47→22:17)
[2022-08-09 07:00] LABS: HEMATOCRIT 24.4 % (32.4-45.2); HEMOGLOBIN 7.8 GM/dL (10.7-15.3); MCH 30.1 pg (25.7-33.7); MEAN CELL VOLUME 94.3 fl (80-96); MEAN PLT VOLUME 11.2 fl (7.5-11.1); PLATELET COUNT 259 10^3/uL (134-434); RBC 2.59 M/mm3 (3.60-5.2); RDW 17.4 % (11.6-15.6); WHITE BLOOD COUNT 10.7 K/mm3 (4.0-10.0)
[2022-08-09] MEDS ORDERED: PANTOPRAZOLE SODIUM 40 MG VIAL IVPUSH SCH (07:00)
[2022-08-09 07:20] LABS: CHLORIDE 109 mmol/L (98-107); POTASSIUM 4.1 mmol/L (3.5-5.1); SODIUM 144 mmol/L (136-145)
[2022-08-09 07:25] LABS: ANION GAP 6 MMOL/L (8-16); CALCIUM 7.7 mg/dL (8.5-10.1); CO2 29 mmol/L (21-32); GLUCOSE,RANDOM 248 mg/dL (74-106)
[2022-08-09 07:28] LABS: CREATININE 0.8 mg/dL (0.55-1.3); PHOSPHOROUS 5.2 mg/dL (2.5-4.9)
[2022-08-09 07:34] LABS: BLOOD UREA NITROGEN 111.6 mg/dL (7-18)
[2022-08-09] MEDS: AMINO ACIDS/PROTEIN HYDROLYS 30 ML LIQUID.PKT GT SCH ×3 (08:36→17:01)
[2022-08-09] MEDS: buPROPion HCL 75 MG TABLET GT SCH ×2 (08:36→22:10)
[2022-08-09] MEDS: ACETAMINOPHEN 650 MG/20.3 ML ORAL SOLUTION (CUPS) GT PRN (09:03)
[2022-08-09] MEDS: MULTIVIT-MINERALS ORAL LIQUID GT SCH (09:03)
[2022-08-09] MEDS: QUEtiapine FUMARATE 100 MG TABLET (FP) GT SCH (09:04)
[2022-08-09] MEDS: FERROUS SO4 300 MG/5 ML ORAL SOLN UNIT DOSE CUPS GT SCH (09:04)
[2022-08-09] MEDS: ASPIRIN 81 MG CHEWABLE TABLETS GT SCH (09:04)
[2022-08-09] MEDS: ASCORBIC ACID 250 MG TABLET (FP) GT SCH (09:04)
[2022-08-09] MEDS: COLLAGENASE CLOSTRIDIUM HIST. 30 GRAMS TUBE TP SCH (09:05)
[2022-08-09] MEDS: SERTRALINE HCL 50 MG TABLET (FP) GT SCH (09:05)
[2022-08-09] MEDS: POLYETHYLENE GLYCOL (HEALTHYLAX) 3350 17 GM PACKET GT SCH ×2 (09:05→22:11)
[2022-08-09] MEDS: MUPIROCIN 2% TOPICAL OINTMENT FOR DECOLONIZATION NS SCH (09:05)
[2022-08-09] MEDS: FAMOTIDINE 20 MG/2.5 ML ORAL LIQUID GT SCH (09:52)
[2022-08-09] MEDS ORDERED: PATIENT'S OWN MEDICATION (NON-FORMULARY) (Ferrous Sulfate [Ferrous Sulfate] 325 MG Tablet) GT SCH (10:00)
[2022-08-09] MEDS ORDERED: PATIENT'S OWN MEDICATION (NON-FORMULARY) (Menthol/Zinc Oxide [Calmoseptine Ointment] 71 GM TP SCH (10:00)
[2022-08-09] MEDS ORDERED: ARTIFICIAL TEARS (POLYVINYL ALCOHOL) OPTH DROPS OU SCH (10:00)
[2022-08-09 10:14] LABS: IRON SERUM 33 ug/dL (50-175)
[2022-08-09 10:15] LABS: TOTAL IRON BINDING CAPACITY 67 ug/dL (250-450)
[2022-08-09] MEDS: SODIUM CHLORIDE FOR INHALATION 3 ML VIAL.NEB IH SCH ×3 (13:02→21:29)
[2022-08-09] MEDS: PANTOPRAZOLE SODIUM 40 MG VIAL IVPUSH SCH (19:39)
[2022-08-09] MEDS ORDERED: CHLORHEXIDINE GLUCONATE 4% CLEANSER FOR DECOLONIZATION TP SCH (22:00)
[2022-08-09] MEDS ORDERED: MUPIROCIN 2% TOPICAL OINTMENT FOR DECOLONIZATION NS SCH (22:00)
[2022-08-09] MEDS: ATORVASTATIN CA 40 MG TABLET (FP) GT SCH (22:10)
[2022-08-09] MEDS: INSULIN (LEVEMIR) 100 UNITS/ML UNITS SQ SCH (22:12)
[2022-08-10] MEDS: MIDODRINE HCL 5 MG TABLET GT SCH ×3 (02:29→20:29)
[2022-08-10] MEDS: MEROPENEM 1 GM in DEXTROSE 5%-WATER 100 ML IVPB SCH ×3 (02:29→18:11)
[2022-08-10] MEDS: INSULIN SLIDING SCALE (NOVOLOG) 1 VIAL SQ SCH ×4 (02:39→21:50)
[2022-08-10] MEDS: PANTOPRAZOLE SODIUM 40 MG VIAL IVPUSH SCH ×2 (06:09→18:12)
[2022-08-10] MEDS: SODIUM CHLORIDE FOR INHALATION 3 ML VIAL.NEB IH SCH ×4 (08:13→20:19)
[2022-08-10] MEDS: buPROPion HCL 75 MG TABLET GT SCH ×2 (08:51→20:29)
[2022-08-10] MEDS: AMINO ACIDS/PROTEIN HYDROLYS 30 ML LIQUID.PKT GT SCH ×3 (08:51→16:37)
[2022-08-10] MEDS: SODIUM CHLORIDE 0.45% 1,000 ML IV SCH (08:51)
[2022-08-10 09:37] LABS: HEMATOCRIT 25.6 % (32.4-45.2); HEMOGLOBIN 8.4 GM/dL (10.7-15.3); MCH 30.8 pg (25.7-33.7); MCHC 32.8 g/dl (32.0-36.0); MEAN CELL VOLUME 93.7 fl (80-96); MEAN PLT VOLUME 11.4 fl (7.5-11.1); PLATELET COUNT 270 10^3/uL (134-434); RBC 2.73 M/mm3 (3.60-5.2); RDW 16.6 % (11.6-15.6); WHITE BLOOD COUNT 9.5 K/mm3 (4.0-10.0)
[2022-08-10 09:55] LABS: CHLORIDE 112 mmol/L (98-107); POTASSIUM 4.2 mmol/L (3.5-5.1); SODIUM 146 mmol/L (136-145)
[2022-08-10 10:02] LABS: CALCIUM 8.8 mg/dL (8.5-10.1); GAMMA GLUTAMYL TRANSPEPTIDASE 74 U/L (5-85)
[2022-08-10 10:03] LABS: ANION GAP 3 MMOL/L (8-16); CO2 30 mmol/L (21-32); GLUCOSE,RANDOM 137 mg/dL (74-106); MAGNESIUM 2.2 mg/dL (1.8-2.4)
[2022-08-10 10:05] LABS: PHOSPHOROUS 5.2 mg/dL (2.5-4.9)
[2022-08-10 10:06] LABS: CREATININE 0.7 mg/dL (0.55-1.3); SGOT/AST 51 U/L (15-37); SGPT/ALT 60 U/L (13-61)
[2022-08-10 10:07] LABS: BILIRUBIN,TOTAL 0.3 mg/dL (0.2-1); TOT PROT 5.5 g/dl (6.4-8.2)
[2022-08-10 10:11] LABS: ALK PHOS 282 U/L (45-117); BLOOD UREA NITROGEN 109.8 mg/dL (7-18)
[2022-08-10] MEDS: SERTRALINE HCL 50 MG TABLET (FP) GT SCH (10:22)
[2022-08-10] MEDS: FERROUS SO4 300 MG/5 ML ORAL SOLN UNIT DOSE CUPS GT SCH (10:22)
[2022-08-10] MEDS: ASPIRIN 81 MG CHEWABLE TABLETS GT SCH (10:22)
[2022-08-10] MEDS: MULTIVIT-MINERALS ORAL LIQUID GT SCH (10:22)
[2022-08-10] MEDS: QUEtiapine FUMARATE 100 MG TABLET (FP) GT SCH (10:23)
[2022-08-10] MEDS: ARTIFICIAL TEARS (POLYVINYL ALCOHOL) OPTH DROPS OU SCH (10:23)
[2022-08-10] MEDS: ASCORBIC ACID 250 MG TABLET (FP) GT SCH (10:23)
[2022-08-10] MEDS: POLYETHYLENE GLYCOL (HEALTHYLAX) 3350 17 GM PACKET GT SCH ×2 (10:23→21:45)
[2022-08-10] MEDS: COLLAGENASE CLOSTRIDIUM HIST. 30 GRAMS TUBE TP SCH (10:51)
[2022-08-10] MEDS ORDERED: SODIUM CHLORIDE 0.45% 1,000 ML IV SCH (14:49)
[2022-08-10] MEDS: ATORVASTATIN CA 40 MG TABLET (FP) GT SCH (21:45)
[2022-08-10] MEDS: INSULIN (LEVEMIR) 100 UNITS/ML UNITS SQ SCH (21:46)
[2022-08-11] MEDS: INSULIN SLIDING SCALE (NOVOLOG) 1 VIAL SQ SCH ×4 (02:17→21:53)
[2022-08-11] MEDS: MEROPENEM 1 GM in DEXTROSE 5%-WATER 100 ML IVPB SCH ×3 (02:18→18:36)
[2022-08-11] MEDS: MIDODRINE HCL 5 MG TABLET GT SCH ×3 (02:19→20:31)
[2022-08-11] MEDS: PANTOPRAZOLE SODIUM 40 MG VIAL IVPUSH SCH ×2 (06:09→20:31)
[2022-08-11] MEDS: SODIUM CHLORIDE FOR INHALATION 3 ML VIAL.NEB IH SCH ×4 (08:27→20:25)
[2022-08-11 09:31] LABS: BASO % 0.1 % (0-2.0); EOS % 0.6 % (0-4.5); HEMATOCRIT 23.5 % (32.4-45.2); HEMOGLOBIN 7.6 GM/dL (10.7-15.3); LYMPH % 4.2 % (8-40); MCH 30.1 pg (25.7-33.7); MCHC 32.3 g/dl (32.0-36.0); MEAN CELL VOLUME 93.1 fl (80-96); MEAN PLT VOLUME 10.9 fl (7.5-11.1); MONO % 3.4 % (3.8-10.2); NEUT % 91.7 % (42.8-82.8); PLATELET COUNT 247 10^3/uL (134-434); RBC 2.53 M/mm3 (3.60-5.2); RDW 16.4 % (11.6-15.6)
[2022-08-11 09:54] LABS: POTASSIUM 4.4 mmol/L (3.5-5.1)
[2022-08-11 10:11] LABS: ALBUMIN 0.9 g/dl (3.4-5.0); BLOOD UREA NITROGEN 99.2 mg/dL (7-18); CALCIUM 8.3 mg/dL (8.5-10.1)
[2022-08-11 10:14] LABS: CREATININE 0.6 mg/dL (0.55-1.3)
[2022-08-11 10:15] LABS: ANISOCYTOSIS 1+; BILIRUBIN,TOTAL 0.2 mg/dL (0.2-1); MACROCYTOSIS 0; TOT PROT 5.2 g/dl (6.4-8.2)
[2022-08-11] MEDS: MULTIVIT-MINERALS ORAL LIQUID GT SCH (10:17)
[2022-08-11] MEDS: AMINO ACIDS/PROTEIN HYDROLYS 30 ML LIQUID.PKT GT SCH ×4 (10:18→20:32)
[2022-08-11] MEDS: buPROPion HCL 75 MG TABLET GT SCH ×2 (10:18→23:00)
[2022-08-11] MEDS: POLYETHYLENE GLYCOL (HEALTHYLAX) 3350 17 GM PACKET GT SCH ×2 (10:18→21:54)
[2022-08-11] MEDS: QUEtiapine FUMARATE 100 MG TABLET (FP) GT SCH (10:19)
[2022-08-11] MEDS: ASPIRIN 81 MG CHEWABLE TABLETS GT SCH (10:19)
[2022-08-11] MEDS: FERROUS SO4 300 MG/5 ML ORAL SOLN UNIT DOSE CUPS GT SCH (10:19)
[2022-08-11] MEDS: ASCORBIC ACID 250 MG TABLET (FP) GT SCH (10:19)
[2022-08-11] MEDS: SERTRALINE HCL 50 MG TABLET (FP) GT SCH (10:19)
[2022-08-11] MEDS: COLLAGENASE CLOSTRIDIUM HIST. 30 GRAMS TUBE TP SCH (11:49)
[2022-08-11] MEDS: ARTIFICIAL TEARS (POLYVINYL ALCOHOL) OPTH DROPS OU SCH (11:49)
[2022-08-11] MEDS: ATORVASTATIN CA 40 MG TABLET (FP) GT SCH (21:54)
[2022-08-11] MEDS: INSULIN (LEVEMIR) 100 UNITS/ML UNITS SQ SCH (21:54)
[2022-08-12] MEDS: MEROPENEM 1 GM in DEXTROSE 5%-WATER 100 ML IVPB SCH ×3 (02:05→18:15)
[2022-08-12] MEDS: MIDODRINE HCL 5 MG TABLET GT SCH ×3 (02:17→22:07)
[2022-08-12] MEDS: INSULIN SLIDING SCALE (NOVOLOG) 1 VIAL SQ SCH ×4 (02:20→23:34)
[2022-08-12] MEDS: PANTOPRAZOLE SODIUM 40 MG VIAL IVPUSH SCH ×2 (06:43→18:12)
[2022-08-12] MEDS: SODIUM CHLORIDE FOR INHALATION 3 ML VIAL.NEB IH SCH ×4 (07:55→20:37)
[2022-08-12] MEDS: AMINO ACIDS/PROTEIN HYDROLYS 30 ML LIQUID.PKT GT SCH ×3 (09:04→16:58)
[2022-08-12] MEDS: buPROPion HCL 75 MG TABLET GT SCH ×2 (09:04→21:42)
[2022-08-12] MEDS: FERROUS SO4 300 MG/5 ML ORAL SOLN UNIT DOSE CUPS GT SCH (09:05)
[2022-08-12] MEDS: QUEtiapine FUMARATE 100 MG TABLET (FP) GT SCH (09:05)
[2022-08-12] MEDS: MULTIVIT-MINERALS ORAL LIQUID GT SCH (09:05)
[2022-08-12] MEDS: ASPIRIN 81 MG CHEWABLE TABLETS GT SCH (09:05)
[2022-08-12] MEDS: ASCORBIC ACID 250 MG TABLET (FP) GT SCH (09:05)
[2022-08-12] MEDS: SERTRALINE HCL 50 MG TABLET (FP) GT SCH (09:05)
[2022-08-12] MEDS: ARTIFICIAL TEARS (POLYVINYL ALCOHOL) OPTH DROPS OU SCH (09:07)
[2022-08-12] MEDS: POLYETHYLENE GLYCOL (HEALTHYLAX) 3350 17 GM PACKET GT SCH ×2 (10:06→23:35)
[2022-08-12 10:12] LABS: BASO % 0.3 % (0-2.0); EOS % 0.9 % (0-4.5); HEMATOCRIT 21.4 % (32.4-45.2); LYMPH % 3.9 % (8-40); MCH 30.1 pg (25.7-33.7); MCHC 31.8 g/dl (32.0-36.0); MEAN CELL VOLUME 94.5 fl (80-96); MEAN PLT VOLUME 11.1 fl (7.5-11.1); MONO % 4.4 % (3.8-10.2); NEUT % 90.5 % (42.8-82.8); PLATELET COUNT 220 10^3/uL (134-434); RBC 2.26 M/mm3 (3.60-5.2); RDW 16.4 % (11.6-15.6); WHITE BLOOD COUNT 12.8 K/mm3 (4.0-10.0)
[2022-08-12 10:20] LABS: HEMOGLOBIN 6.8 GM/dL (10.7-15.3)
[2022-08-12 11:11] LABS: ALK PHOS 396 U/L (45-117); ANION GAP 8 MMOL/L (8-16); BILIRUBIN,TOTAL 0.3 mg/dL (0.2-1); BLOOD UREA NITROGEN 104.4 mg/dL (7-18); CALCIUM 8.3 mg/dL (8.5-10.1); CHLORIDE 110 mmol/L (98-107); CO2 25 mmol/L (21-32); CREATININE 0.6 mg/dL (0.55-1.3); GLUCOSE,RANDOM 219 mg/dL (74-106); POTASSIUM 5.1 mmol/L (3.5-5.1); SGOT/AST 124 U/L (15-37); SGPT/ALT 81 U/L (13-61); SODIUM 144 mmol/L (136-145); TOT PROT 4.9 g/dl (6.4-8.2)
[2022-08-12] MEDS: COLLAGENASE CLOSTRIDIUM HIST. 30 GRAMS TUBE TP SCH (13:00)
[2022-08-12] MEDS: ATORVASTATIN CA 40 MG TABLET (FP) GT SCH (21:42)
[2022-08-12] MEDS: INSULIN (LEVEMIR) 100 UNITS/ML UNITS SQ SCH (21:43)
[2022-08-13 02:17] LABS: HEMATOCRIT 26.3 % (32.4-45.2); HEMOGLOBIN 8.4 GM/dL (10.7-15.3); MCH 29.5 pg (25.7-33.7); MCHC 31.9 g/dl (32.0-36.0); MEAN CELL VOLUME 92.3 fl (80-96); MEAN PLT VOLUME 10.4 fl (7.5-11.1); PLATELET COUNT 234 10^3/uL (134-434); RBC 2.85 M/mm3 (3.60-5.2); RDW 15.5 % (11.6-15.6); WHITE BLOOD COUNT 14.8 K/mm3 (4.0-10.0)
[2022-08-13] MEDS: MIDODRINE HCL 5 MG TABLET GT SCH ×4 (02:25→22:48)
[2022-08-13] MEDS: MEROPENEM 1 GM in DEXTROSE 5%-WATER 100 ML IVPB SCH ×3 (02:39→18:03)
[2022-08-13] MEDS: INSULIN SLIDING SCALE (NOVOLOG) 1 VIAL SQ SCH ×4 (02:39→22:50)
[2022-08-13] MEDS: PANTOPRAZOLE SODIUM 40 MG VIAL IVPUSH SCH ×2 (06:25→18:01)
[2022-08-13] MEDS: SODIUM CHLORIDE FOR INHALATION 3 ML VIAL.NEB IH SCH ×4 (08:49→21:14)
[2022-08-13] MEDS: AMINO ACIDS/PROTEIN HYDROLYS 30 ML LIQUID.PKT GT SCH ×3 (09:00→18:01)
[2022-08-13 09:11] LABS: BASO % 0.1 % (0-2.0); EOS % 0.8 % (0-4.5); HEMATOCRIT 23.2 % (32.4-45.2); HEMOGLOBIN 7.9 GM/dL (10.7-15.3); LYMPH % 4.1 % (8-40); MCH 31.3 pg (25.7-33.7); MCHC 34.2 g/dl (32.0-36.0); MEAN CELL VOLUME 91.6 fl (80-96); PLATELET COUNT 205 10^3/uL (134-434); RBC 2.53 M/mm3 (3.60-5.2); RDW 15.2 % (11.6-15.6); WHITE BLOOD COUNT 14.5 K/mm3 (4.0-10.0)
[2022-08-13 09:16] LABS: INR 1.16 (0.83-1.09); PROTHROMBIN TIME (PATIENT) 13.4 SEC (9.7-13.0)
[2022-08-13 09:18] LABS: ACTIVATED PTT 25.7 SECONDS (25.2-36.5)
[2022-08-13] MEDS: buPROPion HCL 75 MG TABLET GT SCH ×2 (09:22→22:49)
[2022-08-13] MEDS: ASCORBIC ACID 250 MG TABLET (FP) GT SCH (09:22)
[2022-08-13] MEDS: FERROUS SO4 300 MG/5 ML ORAL SOLN UNIT DOSE CUPS GT SCH (09:22)
[2022-08-13] MEDS: MULTIVIT-MINERALS ORAL LIQUID GT SCH (09:23)
[2022-08-13] MEDS: SERTRALINE HCL 50 MG TABLET (FP) GT SCH (09:23)
[2022-08-13] MEDS: ARTIFICIAL TEARS (POLYVINYL ALCOHOL) OPTH DROPS OU SCH (09:23)
[2022-08-13] MEDS: QUEtiapine FUMARATE 100 MG TABLET (FP) GT SCH (09:23)
[2022-08-13] MEDS: POLYETHYLENE GLYCOL (HEALTHYLAX) 3350 17 GM PACKET GT SCH ×2 (09:24→22:13)
[2022-08-13 09:34] LABS: POTASSIUM 5.1 mmol/L (3.5-5.1)
[2022-08-13 09:39] LABS: ALBUMIN 0.9 g/dl (3.4-5.0); CALCIUM 7.9 mg/dL (8.5-10.1)
[2022-08-13 09:42] LABS: BILIRUBIN,TOTAL 0.3 mg/dL (0.2-1); CREATININE 0.5 mg/dL (0.55-1.3); PHOSPHOROUS 4.9 mg/dL (2.5-4.9); TOT PROT 4.7 g/dl (6.4-8.2)
[2022-08-13] MEDS: COLLAGENASE CLOSTRIDIUM HIST. 30 GRAMS TUBE TP SCH (13:00)
[2022-08-13] MEDS: ATORVASTATIN CA 40 MG TABLET (FP) GT SCH (22:49)
[2022-08-13] MEDS: INSULIN (LEVEMIR) 100 UNITS/ML UNITS SQ SCH (23:17)
[2022-08-14] MEDS: MEROPENEM 1 GM in DEXTROSE 5%-WATER 100 ML IVPB SCH ×3 (01:12→17:02)
[2022-08-14] MEDS: MIDODRINE HCL 5 MG TABLET GT SCH ×3 (02:50→19:53)
[2022-08-14] MEDS: INSULIN SLIDING SCALE (NOVOLOG) 1 VIAL SQ SCH ×4 (03:03→22:13)
[2022-08-14] MEDS: PANTOPRAZOLE SODIUM 40 MG VIAL IVPUSH SCH ×2 (06:31→19:53)
[2022-08-14] MEDS: SODIUM CHLORIDE FOR INHALATION 3 ML VIAL.NEB IH SCH ×4 (07:50→20:05)
[2022-08-14] MEDS: AMINO ACIDS/PROTEIN HYDROLYS 30 ML LIQUID.PKT GT SCH ×3 (08:34→17:02)
[2022-08-14] MEDS: buPROPion HCL 75 MG TABLET GT SCH ×2 (08:34→19:54)
[2022-08-14 10:47] LABS: HEMATOCRIT 25.2 % (32.4-45.2); HEMOGLOBIN 8.4 GM/dL (10.7-15.3); MCH 30.8 pg (25.7-33.7); MCHC 33.4 g/dl (32.0-36.0); MEAN CELL VOLUME 92.4 fl (80-96); MEAN PLT VOLUME 10.9 fl (7.5-11.1); PLATELET COUNT 210 10^3/uL (134-434); RBC 2.72 M/mm3 (3.60-5.2); RDW 15.4 % (11.6-15.6); WHITE BLOOD COUNT 11.7 K/mm3 (4.0-10.0)
[2022-08-14] MEDS: FERROUS SO4 300 MG/5 ML ORAL SOLN UNIT DOSE CUPS GT SCH (10:53)
[2022-08-14] MEDS: ASCORBIC ACID 250 MG TABLET (FP) GT SCH (10:53)
[2022-08-14] MEDS: SERTRALINE HCL 50 MG TABLET (FP) GT SCH (10:53)
[2022-08-14] MEDS: POLYETHYLENE GLYCOL (HEALTHYLAX) 3350 17 GM PACKET GT SCH ×2 (10:53→22:13)
[2022-08-14] MEDS: QUEtiapine FUMARATE 100 MG TABLET (FP) GT SCH (10:53)
[2022-08-14] MEDS: ARTIFICIAL TEARS (POLYVINYL ALCOHOL) OPTH DROPS OU SCH (11:01)
[2022-08-14] MEDS: MULTIVIT-MINERALS ORAL LIQUID GT SCH (11:01)
[2022-08-14 11:03] LABS: POTASSIUM 4.8 mmol/L (3.5-5.1)
[2022-08-14 11:09] LABS: BLOOD UREA NITROGEN 98.7 mg/dL (7-18); CALCIUM 8.3 mg/dL (8.5-10.1)
[2022-08-14 11:13] LABS: CREATININE 0.5 mg/dL (0.55-1.3)
[2022-08-14 11:15] LABS: BILIRUBIN,TOTAL 0.6 mg/dL (0.2-1)
[2022-08-14 11:44] LABS: ANISOCYTOSIS 1+; MACROCYTOSIS 1+
[2022-08-14] MEDS: COLLAGENASE CLOSTRIDIUM HIST. 30 GRAMS TUBE TP SCH (14:37)
[2022-08-14] MEDS: INSULIN (LEVEMIR) 100 UNITS/ML UNITS SQ SCH (22:13)
[2022-08-14] MEDS: ATORVASTATIN CA 40 MG TABLET (FP) GT SCH (22:14)
[2022-08-15] MEDS: MEROPENEM 1 GM in DEXTROSE 5%-WATER 100 ML IVPB SCH (02:00)
[2022-08-15] MEDS: MIDODRINE HCL 5 MG TABLET GT SCH ×3 (03:45→18:24)
[2022-08-15] MEDS: INSULIN SLIDING SCALE (NOVOLOG) 1 VIAL SQ SCH ×4 (03:45→21:45)
[2022-08-15] MEDS: PANTOPRAZOLE SODIUM 40 MG VIAL IVPUSH SCH ×2 (06:59→18:24)
[2022-08-15] MEDS: AMINO ACIDS/PROTEIN HYDROLYS 30 ML LIQUID.PKT GT SCH ×3 (08:44→16:35)
[2022-08-15] MEDS: buPROPion HCL 75 MG TABLET GT SCH ×2 (08:45→20:19)
[2022-08-15] MEDS: SODIUM CHLORIDE FOR INHALATION 3 ML VIAL.NEB IH SCH ×4 (09:07→21:04)
[2022-08-15] MEDS: POLYETHYLENE GLYCOL (HEALTHYLAX) 3350 17 GM PACKET GT SCH ×2 (10:00→21:49)
[2022-08-15] MEDS: FERROUS SO4 300 MG/5 ML ORAL SOLN UNIT DOSE CUPS GT SCH (11:06)
[2022-08-15] MEDS: SERTRALINE HCL 50 MG TABLET (FP) GT SCH (11:06)
[2022-08-15] MEDS: ASCORBIC ACID 250 MG TABLET (FP) GT SCH (11:06)
[2022-08-15] MEDS: QUEtiapine FUMARATE 100 MG TABLET (FP) GT SCH (11:07)
[2022-08-15] MEDS: MULTIVIT-MINERALS ORAL LIQUID GT SCH (11:08)
[2022-08-15] MEDS: ARTIFICIAL TEARS (POLYVINYL ALCOHOL) OPTH DROPS OU SCH (11:09)
[2022-08-15] MEDS: COLLAGENASE CLOSTRIDIUM HIST. 30 GRAMS TUBE TP SCH (11:10)
[2022-08-15] MEDS: INSULIN (LEVEMIR) 100 UNITS/ML UNITS SQ SCH (21:49)
[2022-08-15] MEDS: ATORVASTATIN CA 40 MG TABLET (FP) GT SCH (21:49)
[2022-08-16] MEDS: INSULIN SLIDING SCALE (NOVOLOG) 1 VIAL SQ SCH ×4 (03:37→21:43)
[2022-08-16] MEDS: MIDODRINE HCL 5 MG TABLET GT SCH ×4 (03:37→18:35)
[2022-08-16] MEDS: PANTOPRAZOLE SODIUM 40 MG VIAL IVPUSH SCH ×2 (06:08→18:46)
[2022-08-16] MEDS: SODIUM CHLORIDE FOR INHALATION 3 ML VIAL.NEB IH SCH ×4 (08:01→21:03)
[2022-08-16] MEDS ORDERED: MIDODRINE HCL 5 MG TABLET GT SCH (08:39)
[2022-08-16 09:44] LABS: POTASSIUM 5.1 mmol/L (3.5-5.1)
[2022-08-16 09:53] LABS: CALCIUM 8.2 mg/dL (8.5-10.1)
[2022-08-16 09:54] LABS: BLOOD UREA NITROGEN 91.8 mg/dL (7-18)
[2022-08-16 09:57] LABS: CREATININE 0.5 mg/dL (0.55-1.3)
[2022-08-16 09:58] LABS: BILIRUBIN,TOTAL 0.2 mg/dL (0.2-1); TOT PROT 4.8 g/dl (6.4-8.2)
[2022-08-16] MEDS: SERTRALINE HCL 50 MG TABLET (FP) GT SCH (10:12)
[2022-08-16] MEDS: ASCORBIC ACID 250 MG TABLET (FP) GT SCH (10:12)
[2022-08-16] MEDS: QUEtiapine FUMARATE 100 MG TABLET (FP) GT SCH (10:12)
[2022-08-16] MEDS: FERROUS SO4 300 MG/5 ML ORAL SOLN UNIT DOSE CUPS GT SCH (10:12)
[2022-08-16] MEDS: AMINO ACIDS/PROTEIN HYDROLYS 30 ML LIQUID.PKT GT SCH ×3 (10:13→17:18)
[2022-08-16] MEDS: buPROPion HCL 75 MG TABLET GT SCH ×2 (10:13→21:38)
[2022-08-16] MEDS: MULTIVIT-MINERALS ORAL LIQUID GT SCH (10:14)
[2022-08-16] MEDS: POLYETHYLENE GLYCOL (HEALTHYLAX) 3350 17 GM PACKET GT SCH ×2 (10:14→21:39)
[2022-08-16] MEDS: ARTIFICIAL TEARS (POLYVINYL ALCOHOL) OPTH DROPS OU SCH (10:16)
[2022-08-16] MEDS: COLLAGENASE CLOSTRIDIUM HIST. 30 GRAMS TUBE TP SCH (10:17)
[2022-08-16 10:18] LABS: BASO % 0.4 % (0-2.0); EOS % 0.7 % (0-4.5); HEMOGLOBIN 7.1 GM/dL (10.7-15.3); LYMPH % 3.9 % (8-40); MCH 30.2 pg (25.7-33.7); MCHC 32.3 g/dl (32.0-36.0); MEAN CELL VOLUME 93.5 fl (80-96); MONO % 6.2 % (3.8-10.2); NEUT % 88.8 % (42.8-82.8); PLATELET COUNT 192 10^3/uL (134-434); RBC 2.35 M/mm3 (3.60-5.2); WHITE BLOOD COUNT 14.4 K/mm3 (4.0-10.0)
[2022-08-16] MEDS ORDERED: INSULIN SLIDING SCALE (NOVOLOG) 1 VIAL SQ ONE ×2 (11:24→18:52)
[2022-08-16] MEDS ORDERED: ACETAMINOPHEN 650 MG/20.3 ML ORAL SOLUTION (CUPS) PO ONE (16:53)
[2022-08-16] MEDS: INSULIN (LEVEMIR) 100 UNITS/ML UNITS SQ SCH (21:43)
[2022-08-17] MEDS: INSULIN SLIDING SCALE (NOVOLOG) 1 VIAL SQ SCH ×4 (03:45→22:17)
[2022-08-17] MEDS: PANTOPRAZOLE SODIUM 40 MG VIAL IVPUSH SCH ×2 (06:03→18:43)
[2022-08-17 08:08] LABS: HEMATOCRIT 23.5 % (32.4-45.2); HEMOGLOBIN 7.5 GM/dL (10.7-15.3); MCH 29.8 pg (25.7-33.7); MCHC 31.8 g/dl (32.0-36.0); MEAN CELL VOLUME 93.7 fl (80-96); MEAN PLT VOLUME 10.9 fl (7.5-11.1); PLATELET COUNT 188 10^3/uL (134-434); RBC 2.51 M/mm3 (3.60-5.2); RDW 16.1 % (11.6-15.6); WHITE BLOOD COUNT 16.8 K/mm3 (4.0-10.0)
[2022-08-17] MEDS: SODIUM CHLORIDE FOR INHALATION 3 ML VIAL.NEB IH SCH ×4 (08:10→20:45)
[2022-08-17 08:24] LABS: POTASSIUM 4.8 mmol/L (3.5-5.1)
[2022-08-17 08:51] LABS: BLOOD UREA NITROGEN 83.2 mg/dL (7-18)
[2022-08-17 08:54] LABS: BILIRUBIN,DIRECT 0.1 mg/dL (0.0-0.2); CREATININE 0.5 mg/dL (0.55-1.3)
[2022-08-17 08:55] LABS: BILIRUBIN,TOTAL 0.4 mg/dL (0.2-1); TOT PROT 4.8 g/dl (6.4-8.2)
[2022-08-17 09:30] LABS: ANISOCYTOSIS 1+; MACROCYTOSIS 1+
[2022-08-17] MEDS: AMINO ACIDS/PROTEIN HYDROLYS 30 ML LIQUID.PKT GT SCH ×3 (10:29→17:10)
[2022-08-17] MEDS: FERROUS SO4 300 MG/5 ML ORAL SOLN UNIT DOSE CUPS GT SCH (10:34)
[2022-08-17] MEDS: MULTIVIT-MINERALS ORAL LIQUID GT SCH (10:34)
[2022-08-17] MEDS: MIDODRINE HCL 5 MG TABLET GT SCH ×3 (10:34→17:11)
[2022-08-17] MEDS: ASCORBIC ACID 250 MG TABLET (FP) GT SCH (10:35)
[2022-08-17] MEDS: SERTRALINE HCL 50 MG TABLET (FP) GT SCH (10:53)
[2022-08-17] MEDS: QUEtiapine FUMARATE 100 MG TABLET (FP) GT SCH (10:53)
[2022-08-17] MEDS: COLLAGENASE CLOSTRIDIUM HIST. 30 GRAMS TUBE TP SCH (10:53)
[2022-08-17] MEDS: ARTIFICIAL TEARS (POLYVINYL ALCOHOL) OPTH DROPS OU SCH (10:56)
[2022-08-17] MEDS: buPROPion HCL 75 MG TABLET GT SCH ×2 (11:12→21:41)
[2022-08-17] MEDS: POLYETHYLENE GLYCOL (HEALTHYLAX) 3350 17 GM PACKET GT SCH ×2 (13:09→21:41)
[2022-08-17] MEDS: INSULIN (LEVEMIR) 100 UNITS/ML UNITS SQ SCH (22:17)
[2022-08-18] MEDS: INSULIN SLIDING SCALE (NOVOLOG) 1 VIAL SQ SCH ×4 (03:23→21:14)
[2022-08-18 03:52] LABS: EPI CELLS 13 /uL (0-25.1); HYALINE CASTS 5 /uL (0-3.1); PH,URINE 5.5 (5.0-8.0); URINE APPEARANCE TURBID; URINE BACTERIA 49 /uL (0-1359); URINE BILIRUBIN NEGATIVE (NEGATIVE); URINE COLOR YELLOW; URINE GLUCOSE (UA) NEGATIVE (NEGATIVE); URINE KETONE NEGATIVE (NEGATIVE); URINE LEUK ESTERASE 2+ (NEGATIVE); URINE NITRITE NEGATIVE (NEGATIVE); URINE PROTEIN 2+ (NEGATIVE); URINE UROBILINOGEN 0.2 mg/dL (0.2-1.0); URINE WBC 2240 /uL (0-25.8)
[2022-08-18] MEDS: PANTOPRAZOLE SODIUM 40 MG VIAL IVPUSH SCH ×2 (06:16→18:08)
[2022-08-18 07:47] LABS: YEAST NONE SEEN (NEGATIVE)
[2022-08-18] MEDS: AMINO ACIDS/PROTEIN HYDROLYS 30 ML LIQUID.PKT GT SCH ×3 (08:08→18:08)
[2022-08-18] MEDS: buPROPion HCL 75 MG TABLET GT SCH ×2 (08:08→21:14)
[2022-08-18 08:43] LABS: BASO % 0.2 % (0-2.0); EOS % 0.7 % (0-4.5); HEMATOCRIT 24.1 % (32.4-45.2); HEMOGLOBIN 8.1 GM/dL (10.7-15.3); LYMPH % 3.4 % (8-40); MCH 30.6 pg (25.7-33.7); MCHC 33.4 g/dl (32.0-36.0); MEAN CELL VOLUME 91.5 fl (80-96); MEAN PLT VOLUME 11.6 fl (7.5-11.1); MONO % 7.1 % (3.8-10.2); NEUT % 88.6 % (42.8-82.8); PLATELET COUNT 151 10^3/uL (134-434); RBC 2.63 M/mm3 (3.60-5.2); RDW 15.6 % (11.6-15.6); WHITE BLOOD COUNT 15.1 K/mm3 (4.0-10.0)
[2022-08-18 08:54] LABS: POTASSIUM 4.9 mmol/L (3.5-5.1)
[2022-08-18 09:02] LABS: CALCIUM 8.1 mg/dL (8.5-10.1)
[2022-08-18] MEDS: SODIUM CHLORIDE FOR INHALATION 3 ML VIAL.NEB IH SCH ×3 (09:02→19:52)
[2022-08-18 09:03] LABS: BLOOD UREA NITROGEN 86.9 mg/dL (7-18)
[2022-08-18 09:05] LABS: BILIRUBIN,DIRECT 0.1 mg/dL (0.0-0.2); CREATININE 0.5 mg/dL (0.55-1.3)
[2022-08-18 09:07] LABS: TOT PROT 4.6 g/dl (6.4-8.2)
[2022-08-18 09:09] LABS: BILIRUBIN,TOTAL 0.6 mg/dL (0.2-1)
[2022-08-18] MEDS: FERROUS SO4 300 MG/5 ML ORAL SOLN UNIT DOSE CUPS GT SCH (10:02)
[2022-08-18] MEDS: QUEtiapine FUMARATE 100 MG TABLET (FP) GT SCH (10:02)
[2022-08-18] MEDS: ASCORBIC ACID 250 MG TABLET (FP) GT SCH (10:02)
[2022-08-18] MEDS: POLYETHYLENE GLYCOL (HEALTHYLAX) 3350 17 GM PACKET GT SCH ×2 (10:02→21:14)
[2022-08-18] MEDS: MIDODRINE HCL 5 MG TABLET GT SCH ×3 (10:02→18:08)
[2022-08-18] MEDS: SERTRALINE HCL 50 MG TABLET (FP) GT SCH (10:02)
[2022-08-18] MEDS: COLLAGENASE CLOSTRIDIUM HIST. 30 GRAMS TUBE TP SCH (10:03)
[2022-08-18] MEDS: ARTIFICIAL TEARS (POLYVINYL ALCOHOL) OPTH DROPS OU SCH (10:04)
[2022-08-18] MEDS: MULTIVIT-MINERALS ORAL LIQUID GT SCH (11:16)
[2022-08-18] MEDS: INSULIN (LEVEMIR) 100 UNITS/ML UNITS SQ SCH (22:12)
[2022-08-19] MEDS: INSULIN SLIDING SCALE (NOVOLOG) 1 VIAL SQ SCH ×4 (04:27→21:04)
[2022-08-19] MEDS: PANTOPRAZOLE SODIUM 40 MG VIAL IVPUSH SCH ×3 (06:29→18:18)
[2022-08-19] MEDS: AMINO ACIDS/PROTEIN HYDROLYS 30 ML LIQUID.PKT GT SCH ×3 (08:32→18:07)
[2022-08-19] MEDS: buPROPion HCL 75 MG TABLET GT SCH ×2 (08:33→20:11)
[2022-08-19] MEDS: SODIUM CHLORIDE FOR INHALATION 3 ML VIAL.NEB IH SCH ×2 (08:49→14:32)
[2022-08-19 09:54] LABS: HEMOGLOBIN 8.9 GM/dL (10.7-15.3); MCH 29.5 pg (25.7-33.7); MCHC 31.6 g/dl (32.0-36.0); MEAN CELL VOLUME 93.3 fl (80-96); MEAN PLT VOLUME 11.5 fl (7.5-11.1); PLATELET COUNT 177 10^3/uL (134-434); RBC 3.01 M/mm3 (3.60-5.2); RDW 15.9 % (11.6-15.6); WHITE BLOOD COUNT 15.6 K/mm3 (4.0-10.0)
[2022-08-19 10:09] LABS: POTASSIUM 5.3 mmol/L (3.5-5.1)
[2022-08-19 10:13] LABS: BLOOD UREA NITROGEN 92.3 mg/dL (7-18); CALCIUM 8.4 mg/dL (8.5-10.1)
[2022-08-19 10:17] LABS: BILIRUBIN,DIRECT 0.1 mg/dL (0.0-0.2); CREATININE 0.5 mg/dL (0.55-1.3)
[2022-08-19 10:18] LABS: BILIRUBIN,TOTAL 0.4 mg/dL (0.2-1); TOT PROT 5.4 g/dl (6.4-8.2)
[2022-08-19 10:23] LABS: ALBUMIN 1.2 g/dl (3.4-5.0)
[2022-08-19] MEDS: SERTRALINE HCL 50 MG TABLET (FP) GT SCH (10:39)
[2022-08-19] MEDS: ASCORBIC ACID 250 MG TABLET (FP) GT SCH (10:39)
[2022-08-19] MEDS: FERROUS SO4 300 MG/5 ML ORAL SOLN UNIT DOSE CUPS GT SCH (10:39)
[2022-08-19] MEDS: COLLAGENASE CLOSTRIDIUM HIST. 30 GRAMS TUBE TP SCH (10:39)
[2022-08-19] MEDS: POLYETHYLENE GLYCOL (HEALTHYLAX) 3350 17 GM PACKET GT SCH ×2 (10:39→21:07)
[2022-08-19] MEDS: ARTIFICIAL TEARS (POLYVINYL ALCOHOL) OPTH DROPS OU SCH (10:39)
[2022-08-19] MEDS: QUEtiapine FUMARATE 100 MG TABLET (FP) GT SCH (10:39)
[2022-08-19] MEDS: MIDODRINE HCL 5 MG TABLET GT SCH ×3 (10:45→18:17)
[2022-08-19 11:08] LABS: ANISOCYTOSIS 0; HELMET CELLS 0; HOWELL-JOLLY BODIES 0; MACROCYTOSIS 0; OVALOCYTE 0; ROULEAU 0; SICKELED CELLS 0; TARGET CELLS 0; TEAR DROP CELLS 0; TOXIC GRANULATION 0
[2022-08-19] MEDS: MULTIVIT-MINERALS ORAL LIQUID GT SCH (13:14)
[2022-08-19] MEDS: INSULIN (LEVEMIR) 100 UNITS/ML UNITS SQ SCH (21:06)
[2022-08-20] MEDS: INSULIN SLIDING SCALE (NOVOLOG) 1 VIAL SQ SCH ×4 (03:06→23:15)
[2022-08-20] MEDS: PANTOPRAZOLE SODIUM 40 MG VIAL IVPUSH SCH (06:57)
[2022-08-20] MEDS: SODIUM CHLORIDE FOR INHALATION 3 ML VIAL.NEB IH SCH ×4 (08:32→20:05)
[2022-08-20] MEDS: buPROPion HCL 75 MG TABLET GT SCH ×2 (09:25→23:25)
[2022-08-20] MEDS: AMINO ACIDS/PROTEIN HYDROLYS 30 ML LIQUID.PKT GT SCH ×3 (09:25→17:30)
[2022-08-20] MEDS: QUEtiapine FUMARATE 100 MG TABLET (FP) GT SCH (09:47)
[2022-08-20] MEDS: SERTRALINE HCL 50 MG TABLET (FP) GT SCH (09:47)
[2022-08-20] MEDS: MULTIVIT-MINERALS ORAL LIQUID GT SCH (09:48)
[2022-08-20] MEDS: FERROUS SO4 300 MG/5 ML ORAL SOLN UNIT DOSE CUPS GT SCH (09:48)
[2022-08-20] MEDS: ASCORBIC ACID 250 MG TABLET (FP) GT SCH (09:48)
[2022-08-20] MEDS: ARTIFICIAL TEARS (POLYVINYL ALCOHOL) OPTH DROPS OU SCH (09:49)
[2022-08-20] MEDS: COLLAGENASE CLOSTRIDIUM HIST. 30 GRAMS TUBE TP SCH (09:51)
[2022-08-20 10:00] LABS: HEMATOCRIT 23.2 % (32.4-45.2); HEMOGLOBIN 7.7 GM/dL (10.7-15.3); MCH 30.9 pg (25.7-33.7); MCHC 33.4 g/dl (32.0-36.0); MEAN CELL VOLUME 92.4 fl (80-96); MEAN PLT VOLUME 11.9 fl (7.5-11.1); PLATELET COUNT 147 10^3/uL (134-434); RBC 2.51 M/mm3 (3.60-5.2); RDW 15.1 % (11.6-15.6); WHITE BLOOD COUNT 15.4 K/mm3 (4.0-10.0)
[2022-08-20 10:20] LABS: BILIRUBIN,DIRECT 0.1 mg/dL (0.0-0.2)
[2022-08-20 10:22] LABS: BILIRUBIN,TOTAL 0.4 mg/dL (0.2-1); TOT PROT 4.7 g/dl (6.4-8.2)
[2022-08-20] MEDS: POLYETHYLENE GLYCOL (HEALTHYLAX) 3350 17 GM PACKET GT SCH ×2 (11:01→22:17)
[2022-08-20] MEDS: MIDODRINE HCL 5 MG TABLET GT SCH ×3 (11:02→17:30)
[2022-08-20 11:14] LABS: ANISOCYTOSIS 2+; MACROCYTOSIS 0
[2022-08-20] MEDS ORDERED: FAMOTIDINE 40 MG/5 ML ORAL SUSPENSION GT SCH (14:00)
[2022-08-20] MEDS: FAMOTIDINE 20 MG/2.5 ML ORAL LIQUID GT SCH (22:21)
[2022-08-20] MEDS: INSULIN (LEVEMIR) 100 UNITS/ML UNITS SQ SCH (23:20)
[2022-08-21] MEDS: INSULIN SLIDING SCALE (NOVOLOG) 1 VIAL SQ SCH ×4 (02:32→22:33)
[2022-08-21] MEDS: SODIUM CHLORIDE FOR INHALATION 3 ML VIAL.NEB IH SCH ×4 (07:55→20:05)
[2022-08-21 08:11] LABS: BASO % 0.3 % (0-2.0); EOS % 0.7 % (0-4.5); HEMATOCRIT 25.6 % (32.4-45.2); HEMOGLOBIN 8.3 GM/dL (10.7-15.3); LYMPH % 2.4 % (8-40); MCH 30.1 pg (25.7-33.7); MCHC 32.3 g/dl (32.0-36.0); MEAN CELL VOLUME 93.2 fl (80-96); MONO % 6.5 % (3.8-10.2); NEUT % 90.1 % (42.8-82.8); PLATELET COUNT 170 10^3/uL (134-434); RBC 2.74 M/mm3 (3.60-5.2); RDW 15.4 % (11.6-15.6); WHITE BLOOD COUNT 15.6 K/mm3 (4.0-10.0)
[2022-08-21 08:17] LABS: ALBUMIN 1.1 g/dl (3.4-5.0)
[2022-08-21 08:20] LABS: BILIRUBIN,DIRECT 0.1 mg/dL (0.0-0.2)
[2022-08-21 08:22] LABS: BILIRUBIN,TOTAL 0.2 mg/dL (0.2-1); TOT PROT 5.2 g/dl (6.4-8.2)
[2022-08-21] MEDS: AMINO ACIDS/PROTEIN HYDROLYS 30 ML LIQUID.PKT GT SCH ×3 (08:55→19:28)
[2022-08-21] MEDS: buPROPion HCL 75 MG TABLET GT SCH ×2 (08:55→22:30)
[2022-08-21] MEDS: QUEtiapine FUMARATE 100 MG TABLET (FP) GT SCH (09:33)
[2022-08-21] MEDS: ASCORBIC ACID 250 MG TABLET (FP) GT SCH (09:33)
[2022-08-21] MEDS: SERTRALINE HCL 50 MG TABLET (FP) GT SCH (09:33)
[2022-08-21] MEDS: FERROUS SO4 300 MG/5 ML ORAL SOLN UNIT DOSE CUPS GT SCH (09:33)
[2022-08-21] MEDS: MIDODRINE HCL 5 MG TABLET GT SCH ×4 (09:34→19:28)
[2022-08-21] MEDS: ARTIFICIAL TEARS (POLYVINYL ALCOHOL) OPTH DROPS OU SCH (09:34)
[2022-08-21] MEDS: MULTIVIT-MINERALS ORAL LIQUID GT SCH (09:36)
[2022-08-21] MEDS: FAMOTIDINE 20 MG/2.5 ML ORAL LIQUID GT SCH ×2 (10:29→22:30)
[2022-08-21] MEDS: POLYETHYLENE GLYCOL (HEALTHYLAX) 3350 17 GM PACKET GT SCH ×2 (12:19→22:30)
[2022-08-21] MEDS: COLLAGENASE CLOSTRIDIUM HIST. 30 GRAMS TUBE TP SCH (13:09)
[2022-08-21] MEDS: INSULIN (LEVEMIR) 100 UNITS/ML UNITS SQ SCH (22:32)
[2022-08-22] MEDS: INSULIN SLIDING SCALE (NOVOLOG) 1 VIAL SQ SCH ×4 (03:10→21:57)
[2022-08-22] MEDS: buPROPion HCL 75 MG TABLET GT SCH ×2 (08:17→21:54)
[2022-08-22] MEDS: AMINO ACIDS/PROTEIN HYDROLYS 30 ML LIQUID.PKT GT SCH ×3 (08:17→17:31)
[2022-08-22 08:52] LABS: BASO % 0.3 % (0-2.0); EOS % 0.8 % (0-4.5); HEMATOCRIT 23.7 % (32.4-45.2); HEMOGLOBIN 7.6 GM/dL (10.7-15.3); LYMPH % 3.5 % (8-40); MCH 30.4 pg (25.7-33.7); MCHC 32.2 g/dl (32.0-36.0); MEAN CELL VOLUME 94.3 fl (80-96); MEAN PLT VOLUME 11.5 fl (7.5-11.1); MONO % 6.5 % (3.8-10.2); NEUT % 88.9 % (42.8-82.8); PLATELET COUNT 169 10^3/uL (134-434); RBC 2.52 M/mm3 (3.60-5.2); RDW 15.5 % (11.6-15.6); WHITE BLOOD COUNT 18.7 K/mm3 (4.0-10.0)
[2022-08-22 09:07] LABS: POTASSIUM 4.4 mmol/L (3.5-5.1)
[2022-08-22 09:09] LABS: CALCIUM 8.6 mg/dL (8.5-10.1)
[2022-08-22 09:10] LABS: ALBUMIN 1.2 g/dl (3.4-5.0); BLOOD UREA NITROGEN 91.6 mg/dL (7-18)
[2022-08-22 09:13] LABS: BILIRUBIN,DIRECT 0.1 mg/dL (0.0-0.2); CREATININE 0.4 mg/dL (0.55-1.3)
[2022-08-22 09:15] LABS: BILIRUBIN,TOTAL 0.2 mg/dL (0.2-1)
[2022-08-22] MEDS: SERTRALINE HCL 50 MG TABLET (FP) GT SCH (10:43)
[2022-08-22] MEDS: POLYETHYLENE GLYCOL (HEALTHYLAX) 3350 17 GM PACKET GT SCH ×3 (10:43→22:34)
[2022-08-22] MEDS: ASCORBIC ACID 250 MG TABLET (FP) GT SCH (10:43)
[2022-08-22] MEDS: QUEtiapine FUMARATE 100 MG TABLET (FP) GT SCH (10:43)
[2022-08-22] MEDS: FERROUS SO4 300 MG/5 ML ORAL SOLN UNIT DOSE CUPS GT SCH (10:43)
[2022-08-22] MEDS: MULTIVIT-MINERALS ORAL LIQUID GT SCH (10:44)
[2022-08-22] MEDS: ARTIFICIAL TEARS (POLYVINYL ALCOHOL) OPTH DROPS OU SCH (10:46)
[2022-08-22] MEDS: COLLAGENASE CLOSTRIDIUM HIST. 30 GRAMS TUBE TP SCH (10:46)
[2022-08-22] MEDS: PANTOPRAZOLE SODIUM 40 MG VIAL IVPUSH SCH (10:47)
[2022-08-22] MEDS: MIDODRINE HCL 5 MG TABLET GT SCH ×3 (10:58→17:31)
[2022-08-22] MEDS: SODIUM CHLORIDE FOR INHALATION 3 ML VIAL.NEB IH SCH ×4 (11:58→20:05)
[2022-08-22] MEDS ORDERED: ACETAMINOPHEN 650 MG/20.3 ML ORAL SOLUTION (CUPS) PO ONE (17:54)
[2022-08-22] MEDS ORDERED: ACETAMINOPHEN 650 MG/20.3 ML ORAL SOLUTION (CUPS) GT ONE (17:56)
[2022-08-22] MEDS: INSULIN (LEVEMIR) 100 UNITS/ML UNITS SQ SCH (21:58)
[2022-08-23] MEDS: INSULIN SLIDING SCALE (NOVOLOG) 1 VIAL SQ SCH ×4 (03:54→21:11)
[2022-08-23 08:15] LABS: HEMATOCRIT 23.5 % (32.4-45.2); HEMOGLOBIN 7.6 GM/dL (10.7-15.3); MCH 30.1 pg (25.7-33.7); MCHC 32.4 g/dl (32.0-36.0); MEAN CELL VOLUME 92.9 fl (80-96); MEAN PLT VOLUME 11.6 fl (7.5-11.1); PLATELET COUNT 187 10^3/uL (134-434); RBC 2.53 M/mm3 (3.60-5.2); WHITE BLOOD COUNT 20.7 K/mm3 (4.0-10.0)
[2022-08-23 08:34] LABS: ALBUMIN 1.1 g/dl (3.4-5.0)
[2022-08-23 08:37] LABS: BILIRUBIN,DIRECT 0.1 mg/dL (0.0-0.2)
[2022-08-23 08:39] LABS: BILIRUBIN,TOTAL 0.3 mg/dL (0.2-1); TOT PROT 5.1 g/dl (6.4-8.2)
[2022-08-23] MEDS: SODIUM CHLORIDE FOR INHALATION 3 ML VIAL.NEB IH SCH ×4 (08:45→21:07)
[2022-08-23] MEDS: ASCORBIC ACID 250 MG TABLET (FP) GT SCH (10:18)
[2022-08-23] MEDS: AMINO ACIDS/PROTEIN HYDROLYS 30 ML LIQUID.PKT GT SCH ×3 (10:18→17:45)
[2022-08-23] MEDS: MIDODRINE HCL 5 MG TABLET GT SCH ×4 (10:18→17:45)
[2022-08-23] MEDS: FERROUS SO4 300 MG/5 ML ORAL SOLN UNIT DOSE CUPS GT SCH (10:19)
[2022-08-23] MEDS: QUEtiapine FUMARATE 100 MG TABLET (FP) GT SCH (10:19)
[2022-08-23] MEDS: buPROPion HCL 75 MG TABLET GT SCH ×2 (10:19→20:04)
[2022-08-23] MEDS: SERTRALINE HCL 50 MG TABLET (FP) GT SCH (10:19)
[2022-08-23] MEDS: MULTIVIT-MINERALS ORAL LIQUID GT SCH (10:20)
[2022-08-23] MEDS: COLLAGENASE CLOSTRIDIUM HIST. 30 GRAMS TUBE TP SCH (10:22)
[2022-08-23] MEDS: ARTIFICIAL TEARS (POLYVINYL ALCOHOL) OPTH DROPS OU SCH (10:22)
[2022-08-23] MEDS: POLYETHYLENE GLYCOL (HEALTHYLAX) 3350 17 GM PACKET GT SCH ×2 (10:38→21:15)
[2022-08-23] MEDS: PANTOPRAZOLE SODIUM 40 MG VIAL IVPUSH SCH (10:39)
[2022-08-23 14:43] LABS: ANISOCYTOSIS 0; MACROCYTOSIS 1+; ROULEAU 1+
[2022-08-23] MEDS: ACETYLCYSTEINE 20% 200MG/ML 4 ML VIAL *FOR ORAL / INH USE ONLY NEB SCH ×2 (16:38→21:07)
[2022-08-23] MEDS: ALBUTEROL SO4 0.083% IH SOL 2.5 MG/3 ML VIAL.NEB. NEB SCH ×2 (16:39→21:07)
[2022-08-23] MEDS: INSULIN (LEVEMIR) 100 UNITS/ML UNITS SQ SCH (21:14)
[2022-08-24] MEDS: INSULIN SLIDING SCALE (NOVOLOG) 1 VIAL SQ SCH ×4 (03:17→21:18)
[2022-08-24] MEDS: SODIUM CHLORIDE FOR INHALATION 3 ML VIAL.NEB IH SCH ×4 (07:20→20:21)
[2022-08-24] MEDS: ALBUTEROL SO4 0.083% IH SOL 2.5 MG/3 ML VIAL.NEB. NEB SCH ×4 (07:20→20:21)
[2022-08-24] MEDS: ACETYLCYSTEINE 20% 200MG/ML 4 ML VIAL *FOR ORAL / INH USE ONLY NEB SCH ×4 (07:20→20:21)
[2022-08-24] MEDS: buPROPion HCL 75 MG TABLET GT SCH ×2 (08:22→20:11)
[2022-08-24] MEDS: AMINO ACIDS/PROTEIN HYDROLYS 30 ML LIQUID.PKT GT SCH ×2 (08:22→17:55)
[2022-08-24 08:54] LABS: BASO % 0.3 % (0-2.0); EOS % 0.8 % (0-4.5); HEMATOCRIT 20.3 % (32.4-45.2); LYMPH % 3.6 % (8-40); MCH 30.1 pg (25.7-33.7); MCHC 32.2 g/dl (32.0-36.0); MEAN CELL VOLUME 93.6 fl (80-96); MEAN PLT VOLUME 11.2 fl (7.5-11.1); MONO % 7.4 % (3.8-10.2); NEUT % 87.9 % (42.8-82.8); PLATELET COUNT 157 10^3/uL (134-434); RBC 2.17 M/mm3 (3.60-5.2); RDW 15.4 % (11.6-15.6); WHITE BLOOD COUNT 14.2 K/mm3 (4.0-10.0)
[2022-08-24 08:55] LABS: POTASSIUM 3.6 mmol/L (3.5-5.1)
[2022-08-24 09:03] LABS: BLOOD UREA NITROGEN 87.4 mg/dL (7-18); CALCIUM 8.7 mg/dL (8.5-10.1)
[2022-08-24 09:04] LABS: ALBUMIN 0.9 g/dl (3.4-5.0)
[2022-08-24 09:06] LABS: CREATININE 0.4 mg/dL (0.55-1.3); HEMOGLOBIN 6.5 GM/dL (10.7-15.3)
[2022-08-24 09:08] LABS: BILIRUBIN,TOTAL 0.2 mg/dL (0.2-1); TOT PROT 4.3 g/dl (6.4-8.2)
[2022-08-24] MEDS: ASCORBIC ACID 250 MG TABLET (FP) GT SCH (10:21)
[2022-08-24] MEDS: FERROUS SO4 300 MG/5 ML ORAL SOLN UNIT DOSE CUPS GT SCH (10:21)
[2022-08-24] MEDS: SERTRALINE HCL 50 MG TABLET (FP) GT SCH (10:21)
[2022-08-24] MEDS: QUEtiapine FUMARATE 100 MG TABLET (FP) GT SCH (10:22)
[2022-08-24] MEDS: POLYETHYLENE GLYCOL (HEALTHYLAX) 3350 17 GM PACKET GT SCH ×2 (10:22→21:21)
[2022-08-24] MEDS: MIDODRINE HCL 5 MG TABLET GT SCH ×3 (10:22→17:55)
[2022-08-24] MEDS: PANTOPRAZOLE SODIUM 40 MG VIAL IVPUSH SCH (10:22)
[2022-08-24] MEDS: ARTIFICIAL TEARS (POLYVINYL ALCOHOL) OPTH DROPS OU SCH (10:23)
[2022-08-24] MEDS: COLLAGENASE CLOSTRIDIUM HIST. 30 GRAMS TUBE TP SCH (10:23)
[2022-08-24] MEDS ORDERED: FAMOTIDINE 20 MG TABLET PEG SCH (11:00)
[2022-08-24] MEDS: MULTIVIT-MINERALS ORAL LIQUID GT SCH (11:26)
[2022-08-24] MEDS: FAMOTIDINE 20 MG/2.5 ML ORAL LIQUID PEG SCH ×2 (11:27→21:19)
[2022-08-24] MEDS ORDERED: ACETAMINOPHEN 500 MG TABLET (FP) GT ONE (19:52)
[2022-08-24] MEDS: INSULIN (LEVEMIR) 100 UNITS/ML UNITS SQ SCH (22:22)
[2022-08-25] MEDS: INSULIN SLIDING SCALE (NOVOLOG) 1 VIAL SQ SCH ×4 (03:08→21:29)
[2022-08-25 08:09] LABS: POTASSIUM 3.7 mmol/L (3.5-5.1)
[2022-08-25 08:15] LABS: BLOOD UREA NITROGEN 82.4 mg/dL (7-18); CALCIUM 8.7 mg/dL (8.5-10.1)
[2022-08-25] MEDS: ACETYLCYSTEINE 20% 200MG/ML 4 ML VIAL *FOR ORAL / INH USE ONLY NEB SCH ×4 (08:15→20:00)
[2022-08-25] MEDS: ALBUTEROL SO4 0.083% IH SOL 2.5 MG/3 ML VIAL.NEB. NEB SCH ×4 (08:15→20:00)
[2022-08-25 08:19] LABS: CREATININE 0.4 mg/dL (0.55-1.3)
[2022-08-25 08:20] LABS: BILIRUBIN,TOTAL 0.2 mg/dL (0.2-1); TOT PROT 4.8 g/dl (6.4-8.2)
[2022-08-25 08:21] LABS: BASO % 0.3 % (0-2.0); EOS % 1.1 % (0-4.5); HEMATOCRIT 24.9 % (32.4-45.2); HEMOGLOBIN 8.1 GM/dL (10.7-15.3); LYMPH % 3.7 % (8-40); MCH 29.4 pg (25.7-33.7); MCHC 32.6 g/dl (32.0-36.0); MEAN CELL VOLUME 90.2 fl (80-96); MEAN PLT VOLUME 10.8 fl (7.5-11.1); MONO % 7.1 % (3.8-10.2); NEUT % 87.8 % (42.8-82.8); PLATELET COUNT 166 10^3/uL (134-434); RBC 2.76 M/mm3 (3.60-5.2)
[2022-08-25 08:29] LABS: ALBUMIN 1.2 g/dl (3.4-5.0)
[2022-08-25] MEDS: SODIUM CHLORIDE FOR INHALATION 3 ML VIAL.NEB IH SCH ×4 (08:43→20:00)
[2022-08-25] MEDS: AMINO ACIDS/PROTEIN HYDROLYS 30 ML LIQUID.PKT GT SCH ×2 (08:43→16:38)
[2022-08-25] MEDS: buPROPion HCL 75 MG TABLET GT SCH ×2 (08:44→23:42)
[2022-08-25] MEDS: MULTIVIT-MINERALS ORAL LIQUID GT SCH (11:06)
[2022-08-25] MEDS: SERTRALINE HCL 50 MG TABLET (FP) GT SCH (11:07)
[2022-08-25] MEDS: FERROUS SO4 300 MG/5 ML ORAL SOLN UNIT DOSE CUPS GT SCH (11:07)
[2022-08-25] MEDS: POLYETHYLENE GLYCOL (HEALTHYLAX) 3350 17 GM PACKET GT SCH ×2 (11:07→21:32)
[2022-08-25] MEDS: ASCORBIC ACID 250 MG TABLET (FP) GT SCH (11:07)
[2022-08-25] MEDS: QUEtiapine FUMARATE 100 MG TABLET (FP) GT SCH (11:07)
[2022-08-25] MEDS: MIDODRINE HCL 5 MG TABLET GT SCH ×3 (11:08→18:58)
[2022-08-25] MEDS: FAMOTIDINE 20 MG/2.5 ML ORAL LIQUID PEG SCH ×2 (11:08→21:53)
[2022-08-25] MEDS: ARTIFICIAL TEARS (POLYVINYL ALCOHOL) OPTH DROPS OU SCH (11:09)
[2022-08-25] MEDS: COLLAGENASE CLOSTRIDIUM HIST. 30 GRAMS TUBE TP SCH (11:09)
[2022-08-25] MEDS ORDERED: VANCOMYCIN 1 GM/200 ML PREMIX BAG (RESTRICTED TO ID ONLY) IVPB ONE (14:45)
[2022-08-25] MEDS: INSULIN (LEVEMIR) 100 UNITS/ML UNITS SQ SCH (21:32)
[2022-08-26] MEDS: INSULIN SLIDING SCALE (NOVOLOG) 1 VIAL SQ SCH ×4 (02:51→21:03)
[2022-08-26 08:01] LABS: BASO % 0.2 % (0-2.0); EOS % 1.4 % (0-4.5); HEMOGLOBIN 8.3 GM/dL (10.7-15.3); LYMPH % 3.5 % (8-40); MCH 30.2 pg (25.7-33.7); MCHC 33.2 g/dl (32.0-36.0); MEAN CELL VOLUME 90.9 fl (80-96); MONO % 8.1 % (3.8-10.2); NEUT % 86.8 % (42.8-82.8); PLATELET COUNT 158 10^3/uL (134-434); RBC 2.75 M/mm3 (3.60-5.2); RDW 17.4 % (11.6-15.6); WHITE BLOOD COUNT 14.9 K/mm3 (4.0-10.0)
[2022-08-26] MEDS: ALBUTEROL SO4 0.083% IH SOL 2.5 MG/3 ML VIAL.NEB. NEB SCH ×4 (08:08→21:37)
[2022-08-26] MEDS: ACETYLCYSTEINE 20% 200MG/ML 4 ML VIAL *FOR ORAL / INH USE ONLY NEB SCH ×4 (08:09→21:36)
[2022-08-26] MEDS: SODIUM CHLORIDE FOR INHALATION 3 ML VIAL.NEB IH SCH ×4 (08:18→21:35)
[2022-08-26 08:31] LABS: POTASSIUM 3.4 mmol/L (3.5-5.1)
[2022-08-26 08:33] LABS: CALCIUM 8.8 mg/dL (8.5-10.1)
[2022-08-26 08:34] LABS: BLOOD UREA NITROGEN 69.3 mg/dL (7-18)
[2022-08-26 08:37] LABS: CREATININE 0.4 mg/dL (0.55-1.3)
[2022-08-26 08:38] LABS: BILIRUBIN,TOTAL 0.2 mg/dL (0.2-1); TOT PROT 4.7 g/dl (6.4-8.2)
[2022-08-26] MEDS: MIDODRINE HCL 5 MG TABLET GT SCH ×3 (09:05→17:36)
[2022-08-26] MEDS: ACETAMINOPHEN 650 MG/20.3 ML ORAL SOLUTION (CUPS) GT PRN (09:06)
[2022-08-26] MEDS: AMINO ACIDS/PROTEIN HYDROLYS 30 ML LIQUID.PKT GT SCH (09:08)
[2022-08-26] MEDS: buPROPion HCL 75 MG TABLET GT SCH ×2 (09:08→20:00)
[2022-08-26] MEDS: MULTIVIT-MINERALS ORAL LIQUID GT SCH (09:09)
[2022-08-26] MEDS: QUEtiapine FUMARATE 100 MG TABLET (FP) GT SCH (09:09)
[2022-08-26] MEDS: FERROUS SO4 300 MG/5 ML ORAL SOLN UNIT DOSE CUPS GT SCH (09:09)
[2022-08-26] MEDS: SERTRALINE HCL 50 MG TABLET (FP) GT SCH (09:09)
[2022-08-26] MEDS: ASCORBIC ACID 250 MG TABLET (FP) GT SCH (09:09)
[2022-08-26] MEDS: FAMOTIDINE 20 MG/2.5 ML ORAL LIQUID PEG SCH ×2 (09:10→21:03)
[2022-08-26] MEDS: ARTIFICIAL TEARS (POLYVINYL ALCOHOL) OPTH DROPS OU SCH (09:19)
[2022-08-26] MEDS: POLYETHYLENE GLYCOL (HEALTHYLAX) 3350 17 GM PACKET GT SCH ×2 (09:40→21:05)
[2022-08-26] MEDS ORDERED: POTASSIUM CHLORIDE TABS 20 MEQ TABLET.ER (FP) PO ONE (11:17)
[2022-08-26] MEDS ORDERED: POTASSIUM CHLORIDE ORAL LIQUID 20 MEQ/15 ML PO ONE (11:30)
[2022-08-26] MEDS: COLLAGENASE CLOSTRIDIUM HIST. 30 GRAMS TUBE TP SCH (12:24)
[2022-08-26] MEDS: INSULIN (LEVEMIR) 100 UNITS/ML UNITS SQ SCH (21:03)
[2022-08-27] MEDS: INSULIN SLIDING SCALE (NOVOLOG) 1 VIAL SQ SCH ×4 (03:10→22:52)
[2022-08-27] MEDS: ALBUTEROL SO4 0.083% IH SOL 2.5 MG/3 ML VIAL.NEB. NEB SCH ×4 (07:50→21:13)
[2022-08-27] MEDS: ACETYLCYSTEINE 20% 200MG/ML 4 ML VIAL *FOR ORAL / INH USE ONLY NEB SCH ×4 (07:50→21:12)
[2022-08-27] MEDS: SODIUM CHLORIDE FOR INHALATION 3 ML VIAL.NEB IH SCH ×4 (08:19→21:13)
[2022-08-27] MEDS: buPROPion HCL 75 MG TABLET GT SCH ×2 (08:56→22:51)
[2022-08-27] MEDS: SERTRALINE HCL 50 MG TABLET (FP) GT SCH (09:00)
[2022-08-27] MEDS: ASCORBIC ACID 250 MG TABLET (FP) GT SCH (09:00)
[2022-08-27] MEDS: QUEtiapine FUMARATE 100 MG TABLET (FP) GT SCH (09:00)
[2022-08-27] MEDS: POLYETHYLENE GLYCOL (HEALTHYLAX) 3350 17 GM PACKET GT SCH ×2 (09:01→22:52)
[2022-08-27] MEDS: FERROUS SO4 300 MG/5 ML ORAL SOLN UNIT DOSE CUPS GT SCH (09:01)
[2022-08-27] MEDS: MULTIVIT-MINERALS ORAL LIQUID GT SCH (09:01)
[2022-08-27] MEDS: FAMOTIDINE 20 MG/2.5 ML ORAL LIQUID PEG SCH ×2 (09:02→23:02)
[2022-08-27 09:03] LABS: CALCIUM 8.7 mg/dL (8.5-10.1)
[2022-08-27] MEDS: ARTIFICIAL TEARS (POLYVINYL ALCOHOL) OPTH DROPS OU SCH (09:03)
[2022-08-27 09:04] LABS: ALBUMIN 1.1 g/dl (3.4-5.0); BLOOD UREA NITROGEN 69.2 mg/dL (7-18)
[2022-08-27 09:07] LABS: CREATININE 0.3 mg/dL (0.55-1.3)
[2022-08-27 09:09] LABS: BILIRUBIN,TOTAL 0.2 mg/dL (0.2-1)
[2022-08-27 09:10] LABS: TOT PROT 4.6 g/dl (6.4-8.2)
[2022-08-27] MEDS: MIDODRINE HCL 5 MG TABLET GT SCH ×2 (11:46→11:57)
[2022-08-27] MEDS: COLLAGENASE CLOSTRIDIUM HIST. 30 GRAMS TUBE TP SCH (12:26)
[2022-08-27] MEDS: INSULIN (LEVEMIR) 100 UNITS/ML UNITS SQ SCH (22:52)
[2022-08-27] MEDS: ACETAMINOPHEN 650 MG/20.3 ML ORAL SOLUTION (CUPS) GT PRN (23:04)
[2022-08-28] MEDS: INSULIN SLIDING SCALE (NOVOLOG) 1 VIAL SQ SCH ×4 (03:07→22:01)
[2022-08-28] MEDS: ALBUTEROL SO4 0.083% IH SOL 2.5 MG/3 ML VIAL.NEB. NEB SCH ×4 (08:45→21:01)
[2022-08-28] MEDS: SODIUM CHLORIDE FOR INHALATION 3 ML VIAL.NEB IH SCH ×4 (08:46→21:00)
[2022-08-28] MEDS: ACETYLCYSTEINE 20% 200MG/ML 4 ML VIAL *FOR ORAL / INH USE ONLY NEB SCH ×4 (08:46→21:00)
[2022-08-28] MEDS: MULTIVIT-MINERALS ORAL LIQUID GT SCH (10:01)
[2022-08-28] MEDS: ASCORBIC ACID 250 MG TABLET (FP) GT SCH (10:01)
[2022-08-28] MEDS: FERROUS SO4 300 MG/5 ML ORAL SOLN UNIT DOSE CUPS GT SCH (10:01)
[2022-08-28] MEDS: QUEtiapine FUMARATE 100 MG TABLET (FP) GT SCH (10:01)
[2022-08-28] MEDS: SERTRALINE HCL 50 MG TABLET (FP) GT SCH (10:01)
[2022-08-28] MEDS: POLYETHYLENE GLYCOL (HEALTHYLAX) 3350 17 GM PACKET GT SCH ×2 (10:02→22:02)
[2022-08-28] MEDS: FAMOTIDINE 20 MG/2.5 ML ORAL LIQUID PEG SCH ×2 (10:02→22:02)
[2022-08-28] MEDS: COLLAGENASE CLOSTRIDIUM HIST. 30 GRAMS TUBE TP SCH (10:03)
[2022-08-28] MEDS: ARTIFICIAL TEARS (POLYVINYL ALCOHOL) OPTH DROPS OU SCH (10:03)
[2022-08-28] MEDS: MIDODRINE HCL 2.5 MG TABLET GT SCH (10:08)
[2022-08-28 11:56] LABS: HEMATOCRIT 28.5 % (32.4-45.2); HEMOGLOBIN 8.9 GM/dL (10.7-15.3); MCHC 31.3 g/dl (32.0-36.0); MEAN CELL VOLUME 92.6 fl (80-96); MEAN PLT VOLUME 11.4 fl (7.5-11.1); PLATELET COUNT 187 10^3/uL (134-434); RBC 3.08 M/mm3 (3.60-5.2); RDW 16.7 % (11.6-15.6); WHITE BLOOD COUNT 15.9 K/mm3 (4.0-10.0)
[2022-08-28 12:29] LABS: ANISOCYTOSIS 0; HELMET CELLS 0; HOWELL-JOLLY BODIES 0; MACROCYTOSIS 0; OVALOCYTE 0; ROULEAU 0; SICKELED CELLS 0; TARGET CELLS 0; TEAR DROP CELLS 0; TOXIC GRANULATION 0
[2022-08-28] MEDS: buPROPion HCL 75 MG TABLET GT SCH ×2 (12:41→22:01)
[2022-08-28 14:34] LABS: BILIRUBIN,TOTAL 0.4 mg/dL (0.2-1); BLOOD UREA NITROGEN 60.1 mg/dL (7-18); CALCIUM 9.1 mg/dL (8.5-10.1); CREATININE 0.4 mg/dL (0.55-1.3); POTASSIUM 4.4 mmol/L (3.5-5.1); TOT PROT 4.8 g/dl (6.4-8.2)
[2022-08-28] MEDS: INSULIN (LEVEMIR) 100 UNITS/ML UNITS SQ SCH (22:02)
[2022-08-29] MEDS: INSULIN SLIDING SCALE (NOVOLOG) 1 VIAL SQ SCH ×3 (03:23→15:46)
[2022-08-29] MEDS: SODIUM CHLORIDE FOR INHALATION 3 ML VIAL.NEB IH SCH ×3 (07:45→15:29)
[2022-08-29] MEDS: ACETYLCYSTEINE 20% 200MG/ML 4 ML VIAL *FOR ORAL / INH USE ONLY NEB SCH ×3 (07:45→15:29)
[2022-08-29] MEDS: ALBUTEROL SO4 0.083% IH SOL 2.5 MG/3 ML VIAL.NEB. NEB SCH ×3 (07:45→15:30)
[2022-08-29 08:45] LABS: HEMATOCRIT 26.9 % (32.4-45.2); HEMOGLOBIN 8.3 GM/dL (10.7-15.3); MCH 28.7 pg (25.7-33.7); MCHC 31.1 g/dl (32.0-36.0); MEAN CELL VOLUME 92.3 fl (80-96); MEAN PLT VOLUME 10.4 fl (7.5-11.1); PLATELET COUNT 196 10^3/uL (134-434); RBC 2.91 M/mm3 (3.60-5.2); RDW 16.7 % (11.6-15.6); WHITE BLOOD COUNT 23.8 K/mm3 (4.0-10.0)
[2022-08-29 09:04] LABS: POTASSIUM 3.9 mmol/L (3.5-5.1)
[2022-08-29 09:06] LABS: CALCIUM 9.7 mg/dL (8.5-10.1)
[2022-08-29 09:07] LABS: MAGNESIUM 1.9 mg/dL (1.8-2.4)
[2022-08-29 09:10] LABS: PHOSPHOROUS 3.1 mg/dL (2.5-4.9)
[2022-08-29 09:11] LABS: CREATININE 0.4 mg/dL (0.55-1.3)
[2022-08-29 09:12] LABS: BILIRUBIN,TOTAL 0.1 mg/dL (0.2-1)
[2022-08-29] MEDS: buPROPion HCL 75 MG TABLET GT SCH (09:19)
[2022-08-29] MEDS: FERROUS SO4 300 MG/5 ML ORAL SOLN UNIT DOSE CUPS GT SCH (09:19)
[2022-08-29] MEDS: SERTRALINE HCL 50 MG TABLET (FP) GT SCH (09:20)
[2022-08-29] MEDS: ASCORBIC ACID 250 MG TABLET (FP) GT SCH (09:20)
[2022-08-29] MEDS: MIDODRINE HCL 2.5 MG TABLET GT SCH (09:20)
[2022-08-29] MEDS: POLYETHYLENE GLYCOL (HEALTHYLAX) 3350 17 GM PACKET GT SCH (09:21)
[2022-08-29] MEDS: FAMOTIDINE 20 MG/2.5 ML ORAL LIQUID PEG SCH (09:21)
[2022-08-29] MEDS: QUEtiapine FUMARATE 100 MG TABLET (FP) GT SCH (09:23)
[2022-08-29] MEDS: ARTIFICIAL TEARS (POLYVINYL ALCOHOL) OPTH DROPS OU SCH (09:23)
[2022-08-29] MEDS: MULTIVIT-MINERALS ORAL LIQUID GT SCH (09:38)
[2022-08-29 09:55] LABS: ANISOCYTOSIS 0; MACROCYTOSIS 1+
[2022-08-29] MEDS: ACETAMINOPHEN 650 MG/20.3 ML ORAL SOLUTION (CUPS) GT PRN (10:08)
[2022-08-29 15:36] VITALS: BP 99/57; TEMP 97.7
[2022-08-29 15:39] VITALS: PULSE 101
[2022-08-29 15:40] VITALS: RESP 17
[2022-08-29] MEDS: COLLAGENASE CLOSTRIDIUM HIST. 30 GRAMS TUBE TP SCH (15:41)
== END 2022-08-29 18:09 | DRG 870 ==
LOC: JER 21:18 → JERBED 22:56 → JICU 08-05 03:14 → J5S 08-09 17:11
PROVIDERS: ADMIT Internal Medicine Pulmonary Disease
PROC: 5A1955Z Respiratory Ventilation, Greater than 96 Consecutive Hours (ICD-10-PCS; principal; 2022-08-04)
PROC: 30233N1 Transfusion of Nonautologous Red Blood Cells into Peripheral Vein, Percutaneous Approach (ICD-10-PCS; 2022-08-04)
PROC: 02HV33Z Insertion of Infusion Device into Superior Vena Cava, Percutaneous Approach (ICD-10-PCS; 2022-08-24)
PROC: B548ZZA Ultrasonography of Superior Vena Cava, Guidance (ICD-10-PCS; 2022-08-24)
DX: A41.9 Sepsis, unspecified organism (principal); L89.154 Pressure ulcer of sacral region, stage 4; G93.41 Metabolic encephalopathy; J18.9 Pneumonia, unspecified organism; R65.21 Severe sepsis with septic shock; J96.10 Chronic respiratory failure, unspecified whether with hypoxia or hypercapnia; I69.354 Hemiplegia and hemiparesis following cerebral infarction affecting left non-dominant side; G12.21 Amyotrophic lateral sclerosis; Z99.11 Dependence on respirator [ventilator] status; J98.11 Atelectasis; R64 Cachexia; N39.0 Urinary tract infection, site not specified; E11.649 Type 2 diabetes mellitus with hypoglycemia without coma; I10 Essential (primary) hypertension; D64.9 Anemia, unspecified; R74.01 Elevation of levels of liver transaminase levels; Z68.24 Body mass index [BMI] 24.0-24.9, adult; E86.0 Dehydration
CPT/HCPCS: 0241U-QW; 36415; 36430; 36556; 36600; 71045-TC-FY; 76705-TC; 77001-TC-FY; 80048; 80053; 80076; 81003; 82272; 82308; 82550; 82607; 82746; 82803; 82962; 82977; 83516; 83540; 83550; 83605; 83735; 83880; 84080; 84100; 84484; 85025; 85027; 85045; 85610; 85651; 85730; 86038; 86140; 86704; 86708; 86803; 86850; 86900; 86901; 86922; 87040; 87070; 87077; 87081; 87086; 87184; 87186; 87205; 87340; 87517; 87635; 93005; 93010; 93306-TC; 93880-TC; 93970-TC; 94002; 94640; 97162-GP; 99285-25; C1751; P9038; P9058